=== PATIENT | male | born 1960 | race African-American/Black ===

== ENCOUNTER 2018-05-13 21:43 | Emergency (ER) | payer MEDICAID ==
[~2018-05-13] VITALS: Ht 177.8 cm; Wt 81.0 kg
[~2018-05-13 21:43] MED LIST: AMLO5TAB4 PO; AMYL1CAP57 PO; AZOPT LEFTEYE; COR12 PO; FOLI-43 PO; GEMF600T4 PO; KETO5DRO80 EACHEYE; LATA2.5D2 EACHEYE; LIPA1CAP8 PO; LISI-186 PO; LISI10TA5 PO; LOPE2CAP PO; LOPE2TAB26 PO; LORA10TA7 PO; METO25TA6 PO; MINE3.5O2 OP; MULT-1146 MT; MULT-1146 PO; OMEP10CA4 PO; PANT40TA4 PO; POLY15DR55 EACHEYE; PRAV40TA58 PO; TUSSL MT; VITAMIN B1 PO; [UNRECOGNIZED DRUG - CODE] TP
[2018-05-13 23:22] LABS: BASOPHILS % 0.9 % (0.0-2.0); EOSINOPHILS % 1.6 % (0.0-5.0); HEMATOCRIT. 32.1 % (42.0-52.0); HEMOGLOBIN. 10.6 g/dL (14.0-18.0); LYMPHOCYTES % 33.8 % (20.0-50.0); MEAN CORPUSCULAR HEMOGLOBIN 31.1 pg (28.0-32.0); MEAN CORPUSCULAR VOLUME 94.3 fL (80.0-94.0); MEAN PLATELET VOLUME 7.3 fl (7.4-10.4); MONOCYTES % 6.8 % (2.0-8.0); NEUTROPHILS % 56.9 % (40.0-76.0); PLATELET 181 x1000/uL (130-400); RED BLOOD CELL COUNT 3.41 mill/uL (4.7-6.1); RED CELL DISTRIBUTION WIDTH 18.1 % (11.6-14.6)
[2018-05-13 23:29] LABS: CHLORIDE 105 mEq/L (98-107)
[2018-05-13] MEDS ORDERED: KETOROLAC 15MG/ML VIAL IV ONE (23:30)
[2018-05-13 23:46] LABS: ETHANOL BLOOD 377 mg/dL
[2018-05-13] MEDS ORDERED: SODIUM CHLORIDE 0.9% 1,000 ML IV ONE (23:59)
[2018-05-14] MEDS ORDERED: FAMOTIDINE 20MG/2ML VIAL IV SCH (00:32)
[2018-05-14] MEDS ORDERED: MAGNESIUM/ALUMINUM HYDROXIDE/SIMETHICONE 30ML UDC PO SCH (00:32)
[2018-05-14 01:37] VITALS: BP 125/64
[2018-05-14 06:38] LABS: OPIATES URINE SCREEN NEGATIVE (NEGATIVE)
[2018-05-14 06:42] LABS: *AMPHETAMINES SCREEN URINE NEGATIVE (NEGATIVE); *BARBITURATES SCREEN URINE NEGATIVE (NEGATIVE); *BENZODIAZEPINES SCREEN URINE NEGATIVE (NEGATIVE); *COCAINE SCREEN URINE NEGATIVE (NEGATIVE); CANNABINOID URINE SCREEN NEGATIVE (NEGATIVE); METHADONE URINE SCREEN NEGATIVE (NEGATIVE); PHENCYCLIDINE URINE SCREEN NEGATIVE (NEGATIVE)
== END 2018-05-14 01:38 | disposition home or self-care (01) ==
LOC: ER 21:43
DX: F10.229 Alcohol dependence with intoxication, unspecified (principal); D64.9 Anemia, unspecified; R10.13 Epigastric pain; I10 Essential (primary) hypertension; E78.5 Hyperlipidemia, unspecified; E78.1 Pure hyperglyceridemia; I51.9 Heart disease, unspecified; K21.9 Gastro-esophageal reflux disease without esophagitis; R79.89 Other specified abnormal findings of blood chemistry; Z79.899 Other long term (current) drug therapy; Y90.8 Blood alcohol level of 240 mg/100 ml or more
CPT/HCPCS: 36415; 71045; 80053; 80305; 83880; 84484; 85025; 93005; 96374; 96375; 99285; G0482; J1885; J3490; J7030; Z7610

== ENCOUNTER 2018-05-14 02:33 | Emergency (ER) | payer MEDICAID ==
[~2018-05-14] VITALS: Ht 177.8 cm; Wt 72.0 kg
[2018-05-14] MEDS ORDERED: FAMOTIDINE 20MG/2ML VIAL IV STA (06:25)
[2018-05-14] MEDS ORDERED: SODIUM CHLORIDE 0.9% 1,000 ML IV ONE (06:25)
[2018-05-14 06:50] LABS: BASOPHILS % 0.5 % (0.0-2.0); EOSINOPHILS % 2.5 % (0.0-5.0); HEMATOCRIT. 34.1 % (42.0-52.0); LYMPHOCYTES % 38.2 % (20.0-50.0); MEAN CORPUSCULAR HEMOGLOBIN 30.5 pg (28.0-32.0); MEAN CORPUSCULAR VOLUME 94.5 fL (80.0-94.0); MEAN PLATELET VOLUME 7.2 fl (7.4-10.4); MONOCYTES % 8.2 % (2.0-8.0); NEUTROPHILS % 50.6 % (40.0-76.0); PLATELET 188 x1000/uL (130-400); RED BLOOD CELL COUNT 3.61 mill/uL (4.7-6.1); RED CELL DISTRIBUTION WIDTH 18.3 % (11.6-14.6)
[2018-05-14 06:58] LABS: INR 1.1; PROTHROMBIN TIME 10.6 sec (9.1-11.1)
[2018-05-14 07:13] LABS: CHLORIDE 108 mEq/L (98-107)
[2018-05-14 07:17] LABS: ETHANOL BLOOD 268 mg/dL
[2018-05-14 07:33] LABS: CLARITY URINE CLEAR (CLEAR); COLOR URINE YELLOW (YELLOW); KETONES URINE NEGATIVE (NEGATIVE); LEUKOCYTE ESTERASE URINE NEGATIVE (NEGATIVE); NITRITE URINE NEGATIVE (NEGATIVE); OCCULT BLOOD URINE NEGATIVE (NEGATIVE); PROTEIN URINE NEGATIVE (NEGATIVE); SPECIFIC GRAVITY URINE 1.003 (1.005-1.030); UROBILINOGEN URINE 0.2 E.U./dL (0.2-1.0)
[2018-05-14 08:04] LABS: *AMPHETAMINES SCREEN URINE NEGATIVE (NEGATIVE); *BARBITURATES SCREEN URINE NEGATIVE (NEGATIVE); *BENZODIAZEPINES SCREEN URINE NEGATIVE (NEGATIVE); *COCAINE SCREEN URINE NEGATIVE (NEGATIVE); METHADONE URINE SCREEN NEGATIVE (NEGATIVE)
[2018-05-14 08:05] LABS: CANNABINOID URINE SCREEN NEGATIVE (NEGATIVE); OPIATES URINE SCREEN NEGATIVE (NEGATIVE); PHENCYCLIDINE URINE SCREEN NEGATIVE (NEGATIVE)
[2018-05-14 08:26] VITALS: BP 110/67
== END 2018-05-14 08:27 | disposition home or self-care (01) ==
LOC: ER 02:33
DX: R10.13 Epigastric pain (principal); K21.9 Gastro-esophageal reflux disease without esophagitis; H40.9 Unspecified glaucoma; E78.00 Pure hypercholesterolemia, unspecified; I10 Essential (primary) hypertension; I95.9 Hypotension, unspecified; F10.129 Alcohol abuse with intoxication, unspecified; Y90.8 Blood alcohol level of 240 mg/100 ml or more; Z79.899 Other long term (current) drug therapy
CPT/HCPCS: 36415; 71045; 80053; 80305; 81003; 83690; 84484; 85025; 85610; 93005; 96374; 99285; G0482; J3490; J7030; Z7610

== ENCOUNTER 2018-06-22 19:02 | Emergency (ER) | payer MEDICAID ==
[~2018-06-22] VITALS: Ht 188 cm; Wt 79.0 kg
[2018-06-22 19:05] VITALS: BP 108/70
== END 2018-06-22 22:15 | disposition left against medical advice (07) ==
LOC: ER 19:35
DX: R19.7 Diarrhea, unspecified (principal); M54.5 Low back pain; Z53.21 Procedure and treatment not carried out due to patient leaving prior to being seen by health care provider

== ENCOUNTER 2018-07-11 23:19 | Inpatient (IN) | payer MEDICAID ==
[~2018-07-11] VITALS: Ht 190.5 cm; Wt 77.8 kg
[2018-07-12] VITALS (21 sets, daily range): BP systolic 100–122; BP diastolic 58–83
[2018-07-12] MEDS ORDERED: ASPIRIN 81MG TABLET PO ONE (01:15)
[2018-07-12] MEDS ORDERED: SODIUM CHLORIDE 0.9% 1,000 ML IV ONE (01:30)
[2018-07-12] MEDS ORDERED: NITROGLYCERIN 0.4MG TABLET SL SL PRN ×2 (01:30→07:45)
[2018-07-12 01:56] LABS: BASOPHILS % 0.4 % (0.0-2.0); HEMATOCRIT. 40.2 % (42.0-52.0); LYMPHOCYTES % 9.5 % (20.0-50.0); MEAN CORPUSCULAR HEMOGLOBIN 30.1 pg (28.0-32.0); MEAN CORPUSCULAR VOLUME 93.1 fL (80.0-94.0); MEAN PLATELET VOLUME 7.6 fl (7.4-10.4); MONOCYTES % 8.7 % (2.0-8.0); NEUTROPHILS % 81.4 % (40.0-76.0); PLATELET 239 x1000/uL (130-400); RED BLOOD CELL COUNT 4.31 mill/uL (4.7-6.1); RED CELL DISTRIBUTION WIDTH 16.6 % (11.6-14.6)
[2018-07-12 02:04] LABS: INR 1.1; PARTIAL THROMBOPLASTIN TIME 30.3 sec (23.4-31.0); PROTHROMBIN TIME 11.4 sec (9.1-11.1)
[2018-07-12 02:05] LABS: CHLORIDE 100 mEq/L (98-107)
[2018-07-12 02:24] LABS: CREATINE KINASE MB FRACTION 50.4 ng/mL (0.5-3.6)
[2018-07-12 02:32] LABS: CREATINE KINASE 4882 IU/L (39-308)
[2018-07-12 07:42] LABS: CLARITY URINE CLEAR (CLEAR); COLOR URINE YELLOW (YELLOW); KETONES URINE 4+ (NEGATIVE); LEUKOCYTE ESTERASE URINE NEGATIVE (NEGATIVE); NITRITE URINE NEGATIVE (NEGATIVE); OCCULT BLOOD URINE 1+ (NEGATIVE); PROTEIN URINE 1+ (NEGATIVE); SPECIFIC GRAVITY URINE 1.024 (1.005-1.030)
[2018-07-12] MEDS ORDERED: CLONIDINE 0.1MG TABLET PO PRN (07:45)
[2018-07-12] MEDS ORDERED: MAGNESIUM/ALUMINUM HYDROXIDE/SIMETHICONE 30ML UDC PO PRN (07:45)
[2018-07-12] MEDS ORDERED: DOCUSATE SODIUM 100MG CAPSULE PO PRN (07:45)
[2018-07-12] MEDS ORDERED: LORAZEPAM 0.5MG TABLET PO PRN (07:45)
[2018-07-12] MEDS ORDERED: KETOROLAC 15MG/ML VIAL IV PRN (07:45)
[2018-07-12] MEDS ORDERED: ZOLPIDEM TARTRATE 5MG TABLET PO PRN (07:45)
[2018-07-12] MEDS ORDERED: ONDANSETRON HCL 4MG/2ML INJ IV PRN ×2 (07:45→16:45)
[2018-07-12] MEDS ORDERED: ACETAMINOPHEN 325MG TABLET PO PRN ×2 (07:45→16:45)
[2018-07-12] MEDS ORDERED: IPRATROPIUM/ALBUTEROL 0.5-3(2.5)MG/3ML NEB INH PRN (07:45)
[2018-07-12 07:53] LABS: ETHANOL BLOOD < 10 mg/dL; LDL CHOLESTEROL 103 mg/dL (5-100)
[2018-07-12 08:08] LABS: HDL CHOLESTEROL 143 mg/dL (40-59)
[2018-07-12] MEDS ORDERED: ASPIRIN 325MG EC TABLET PO SCH (09:00)
[2018-07-12] MEDS ORDERED: NICARDIPINE 100MCG/ML 10ML VIAL (CATH LAB) IV ONE (14:23)
[2018-07-12] MEDS ORDERED: NITROGLYCERIN 50MCG/ML 10ML VIAL (CATH LAB) IV ONE (14:23)
[2018-07-12] MEDS ORDERED: HEPARIN SODIUM 1,000 UNIT/1ML VIAL IV ONE (14:42)
[2018-07-12] MEDS ORDERED: DEXT 5%/0.45% NACL 1000ML 1,000 ML IV SCH (15:15)
[2018-07-12] MEDS ORDERED: ASPIRIN 325MG TABLET PO ONE (15:15)
[2018-07-12] MEDS: SODIUM CHLORIDE 0.45% 1,000 ML IV SCH (15:19)
[2018-07-12] MEDS ORDERED: LIDOCAINE HCL 1% 20ML VIAL (Pyxis) INJ ONE (16:22)
[2018-07-12] MEDS ORDERED: IODIXANOL 320MG/ML 100 ML BOTTLE IV ONE (16:22)
[2018-07-12] MEDS ORDERED: FENTANYL CITRATE/PF 50MCG/ML 2ML VIAL ONE (16:29)
[2018-07-12] MEDS ORDERED: MIDAZOLAM HCL 2 MG/2 ML VIAL ONE (16:29)
[2018-07-12] MEDS ORDERED: ATROPINE SULFATE 1MG/10ML SYR IV PRN (16:45)
[2018-07-12] MEDS ORDERED: ENOXAPARIN 40MG/0.4ML SYR SUBCUT SCH (18:00)
[2018-07-12] MEDS ORDERED: SODIUM CHLORIDE 0.45% 1,000 ML IV ONE (18:00)
[2018-07-12] MEDS: MORPHINE SULFATE 4 MG/ML CPJ (NOT FOR IM USE) IV PRN ×2 (18:13→22:08)
[2018-07-12] MEDS: GUAIFENESIN 200MG/10ML SUGAR FREE UDC PO PRN ×2 (18:48→22:01)
[2018-07-12] MEDS ORDERED: MVI, ADULT NO.1 10 ML, FOLIC ACID 1 MG, THIAMINE HCL 100 MG in SODIUM CHLORIDE 0.9% 1,0... IV SCH ×4 (20:00)
[2018-07-12] MEDS ORDERED: INFLUENZA VIRUS VACCINE(AFLURIA) 0.5ML SYR IM ONE (20:30)
[2018-07-12] MEDS ORDERED: PNEUMOCOCCAL 23-VAL P-SAC VAC 0.5 ML IM ONE (20:30)
[2018-07-12] MEDS: SUCRALFATE 1 G/10 ML UDC PO SCH (20:42)
[2018-07-12] MEDS: FAMOTIDINE 20MG TABLET PO SCH (20:42)
[2018-07-12] MEDS ORDERED: NA PHOS,M-B/NA PHOS,DI-BA ENEMA 118ML PR PRN (21:00)
[2018-07-12 22:01] LABS: CREATINE KINASE MB FRACTION 21.2 ng/mL (0.5-3.6)
[2018-07-13] VITALS (12 sets, daily range): BP systolic 101–117; BP diastolic 54–76
[2018-07-13 00:04] LABS: *AMPHETAMINES SCREEN URINE PRESUMTIVE POSITIVE (NEGATIVE); *BARBITURATES SCREEN URINE NEGATIVE (NEGATIVE); *BENZODIAZEPINES SCREEN URINE PRESUMTIVE POSITIVE (NEGATIVE); *COCAINE SCREEN URINE PRESUMTIVE POSITIVE (NEGATIVE); CANNABINOID URINE SCREEN NEGATIVE (NEGATIVE); METHADONE URINE SCREEN NEGATIVE (NEGATIVE); OPIATES URINE SCREEN PRESUMTIVE POSITIVE (NEGATIVE); PHENCYCLIDINE URINE SCREEN NEGATIVE (NEGATIVE)
[2018-07-13 00:57] LABS: CREATINE KINASE MB FRACTION 17.9 ng/mL (0.5-3.6)
[2018-07-13] MEDS: SUCRALFATE 1 G/10 ML UDC PO SCH (07:03)
[2018-07-13] MEDS: SODIUM CHLORIDE 0.45% 1,000 ML IV SCH (07:15)
[2018-07-13 07:21] LABS: BASOPHILS % 0.4 % (0.0-2.0); EOSINOPHILS % 0.8 % (0.0-5.0); HEMATOCRIT. 34.4 % (42.0-52.0); HEMOGLOBIN. 11.3 g/dL (14.0-18.0); LYMPHOCYTES % 8.8 % (20.0-50.0); MEAN CORPUSCULAR VOLUME 91.3 fL (80.0-94.0); MEAN PLATELET VOLUME 8.2 fl (7.4-10.4); MONOCYTES % 8.1 % (2.0-8.0); NEUTROPHILS % 81.9 % (40.0-76.0); PLATELET 179 x1000/uL (130-400); RED BLOOD CELL COUNT 3.77 mill/uL (4.7-6.1); RED CELL DISTRIBUTION WIDTH 16.9 % (11.6-14.6)
[2018-07-13 07:46] LABS: CHLORIDE 108 mEq/L (98-107)
[2018-07-13] MEDS: FAMOTIDINE 20MG TABLET PO SCH (08:16)
[2018-07-13] MEDS ORDERED: INFLUENZA VIRUS VACCINE(AFLURIA) 0.5ML SYR IM ONE (09:00)
[2018-07-13] MEDS ORDERED: PNEUMOCOCCAL 23-VAL P-SAC VAC 0.5 ML IM ONE (09:00)
[2018-07-13] MEDS ORDERED: ASPIRIN 325MG TABLET PO SCH (09:00)
== END 2018-07-13 13:05 | disposition home or self-care (01) | DRG 190 ==
LOC: ER 23:19 → EDBEDREQ 07-12 03:21 → EDBEDREQTM 07-12 03:21 → CANRESERV 07-12 14:28 → ENRESERV 07-12 14:28 → EDBEDREQSVC 07-12 15:21 → 3WST 07-12 17:28
PROVIDERS: ADMIT Internal Medicine; ATTEND Internal Medicine
PROC: 4A023N7 Measurement of Cardiac Sampling and Pressure, Left Heart, Percutaneous Approach (ICD-10-PCS; principal; 2018-07-13)
PROC: B2111ZZ Fluoroscopy of Multiple Coronary Arteries using Low Osmolar Contrast (ICD-10-PCS; 2018-07-13)
PROC: B2151ZZ Fluoroscopy of Left Heart using Low Osmolar Contrast (ICD-10-PCS; 2018-07-13)
DX: I21.4 Non-ST elevation (NSTEMI) myocardial infarction (principal); E87.1 Hypo-osmolality and hyponatremia; M62.82 Rhabdomyolysis; K86.1 Other chronic pancreatitis; I10 Essential (primary) hypertension; F10.10 Alcohol abuse, uncomplicated; D72.829 Elevated white blood cell count, unspecified; H40.9 Unspecified glaucoma; Y90.0 Blood alcohol level of less than 20 mg/100 ml; R74.8 Abnormal levels of other serum enzymes; R94.31 Abnormal electrocardiogram [ECG] [EKG]; Z87.891 Personal history of nicotine dependence; Z79.899 Other long term (current) drug therapy; Z71.41 Alcohol abuse counseling and surveillance of alcoholic
CPT/HCPCS: 36415; 71045; 76700; 80048; 80061; 80305; 82550; 82553; 83036; 83735; 83880; 84484; 85379; 90686; 90732; 93005; 93306; 93458; 93970; 96360; 96361; 99285; C1769; C1887; C1893; G0482; J1644; J1650; J1885; J2250; J2270; J3010; J3411; J3490; J7030; Q9967

== ENCOUNTER 2018-08-12 12:53 | Emergency (ER) | payer MEDICAID ==
[~2018-08-12] VITALS: Ht 177.8 cm; Wt 90.0 kg
[~2018-08-12 12:53] MED LIST changes: -AMLO5TAB4 PO; -AMYL1CAP57 PO; -AZOPT LEFTEYE; -COR12 PO; -FOLI-43 PO; -GEMF600T4 PO; -KETO5DRO80 EACHEYE; -LATA2.5D2 EACHEYE; -LIPA1CAP8 PO; -LISI-186 PO; -LISI10TA5 PO; -LOPE2CAP PO; -LOPE2TAB26 PO; -LORA10TA7 PO; -METO25TA6 PO; -MINE3.5O2 OP; -MULT-1146 MT; -MULT-1146 PO; -OMEP10CA4 PO; -POLY15DR55 EACHEYE; -PRAV40TA58 PO; -TUSSL MT; -VITAMIN B1 PO; -[UNRECOGNIZED DRUG - CODE] TP
[2018-08-12] MEDS ORDERED: MORPHINE SULFATE 4 MG/ML CPJ (NOT FOR IM USE) IV STA (13:57)
[2018-08-12] MEDS ORDERED: SODIUM CHLORIDE 0.9% 1,000 ML IV ONE (13:57)
[2018-08-12] MEDS ORDERED: ONDANSETRON HCL 4MG/2ML INJ IV STA (13:57)
[2018-08-12 14:24] LABS: BASOPHILS % 0.4 % (0.0-2.0); EOSINOPHILS % 2.4 % (0.0-5.0); HEMATOCRIT. 34.4 % (42.0-52.0); HEMOGLOBIN. 11.3 g/dL (14.0-18.0); LYMPHOCYTES % 36.4 % (20.0-50.0); MEAN CORPUSCULAR HEMOGLOBIN 29.6 pg (28.0-32.0); MEAN CORPUSCULAR VOLUME 89.7 fL (80.0-94.0); MEAN PLATELET VOLUME 6.9 fl (7.4-10.4); MONOCYTES % 7.7 % (2.0-8.0); NEUTROPHILS % 53.1 % (40.0-76.0); PLATELET 338 x1000/uL (130-400); RED BLOOD CELL COUNT 3.83 mill/uL (4.7-6.1); RED CELL DISTRIBUTION WIDTH 16.3 % (11.6-14.6)
[2018-08-12 14:27] LABS: CHLORIDE 107 mEq/L (98-107)
[2018-08-12 14:49] LABS: CLARITY URINE CLEAR (CLEAR); COLOR URINE YELLOW (YELLOW); KETONES URINE NEGATIVE (NEGATIVE); LEUKOCYTE ESTERASE URINE NEGATIVE (NEGATIVE); NITRITE URINE NEGATIVE (NEGATIVE); OCCULT BLOOD URINE NEGATIVE (NEGATIVE); PROTEIN URINE NEGATIVE (NEGATIVE); SPECIFIC GRAVITY URINE 1.003 (1.005-1.030); UROBILINOGEN URINE 0.2 E.U./dL (0.2-1.0)
[2018-08-12 16:10] VITALS: BP 121/73
== END 2018-08-12 16:23 | disposition home or self-care (01) ==
LOC: ER 12:53
DX: R07.89 Other chest pain (principal); R10.84 Generalized abdominal pain; R11.2 Nausea with vomiting, unspecified; R19.7 Diarrhea, unspecified; I10 Essential (primary) hypertension; E11.9 Type 2 diabetes mellitus without complications; Z87.828 Personal history of other (healed) physical injury and trauma; Z85.9 Personal history of malignant neoplasm, unspecified
CPT/HCPCS: 36415; 70450; 71111; 74176; 80053; 81003; 83690; 83880; 84484; 85025; 93005; 96361; 96374; 96375; 99284; J2270; J2405; J7030

== ENCOUNTER 2018-08-25 09:12 | Inpatient (IN) | payer MEDICAID ==
[~2018-08-25] VITALS: Ht 190.5 cm; Wt 73.9 kg
[2018-08-25] MEDS ORDERED: ONDANSETRON HCL 4MG/2ML INJ IV STA (10:21)
[2018-08-25] MEDS ORDERED: KETOROLAC 30MG/ML VIAL IV STA (10:21)
[2018-08-25 10:35] LABS: BASOPHILS % 0.9 % (0.0-2.0); EOSINOPHILS % 1.5 % (0.0-5.0); HEMATOCRIT. 28.6 % (42.0-52.0); HEMOGLOBIN. 9.4 g/dL (14.0-18.0); LYMPHOCYTES % 23.2 % (20.0-50.0); MEAN CORPUSCULAR HEMOGLOBIN 29.7 pg (28.0-32.0); MEAN CORPUSCULAR VOLUME 90.5 fL (80.0-94.0); MEAN PLATELET VOLUME 7.5 fl (7.4-10.4); MONOCYTES % 11.5 % (2.0-8.0); NEUTROPHILS % 62.9 % (40.0-76.0); PLATELET 227 x1000/uL (130-400); RED BLOOD CELL COUNT 3.16 mill/uL (4.7-6.1); RED CELL DISTRIBUTION WIDTH 16.6 % (11.6-14.6)
[2018-08-25 10:37] LABS: CHLORIDE 109 mEq/L (98-107)
[2018-08-25 10:42] LABS: PROTHROMBIN TIME 10.1 sec (9.1-11.1)
[2018-08-25 10:48] LABS: CLARITY URINE CLEAR (CLEAR); COLOR URINE YELLOW (YELLOW); KETONES URINE NEGATIVE (NEGATIVE); LEUKOCYTE ESTERASE URINE NEGATIVE (NEGATIVE); NITRITE URINE NEGATIVE (NEGATIVE); OCCULT BLOOD URINE NEGATIVE (NEGATIVE); PH URINE 6.5 (4.5-8.0); PROTEIN URINE TRACE (NEGATIVE)
[2018-08-25 10:51] LABS: ETHANOL BLOOD 362 mg/dL
[2018-08-25 11:29] LABS: *AMPHETAMINES SCREEN URINE NEGATIVE (NEGATIVE); *BARBITURATES SCREEN URINE NEGATIVE (NEGATIVE)
[2018-08-25 11:30] LABS: *BENZODIAZEPINES SCREEN URINE NEGATIVE (NEGATIVE); *COCAINE SCREEN URINE NEGATIVE (NEGATIVE); CANNABINOID URINE SCREEN NEGATIVE (NEGATIVE); METHADONE URINE SCREEN NEGATIVE (NEGATIVE); OPIATES URINE SCREEN NEGATIVE (NEGATIVE); PHENCYCLIDINE URINE SCREEN NEGATIVE (NEGATIVE)
[2018-08-25] MEDS ORDERED: IOHEXOL-300 100 ML BOTTLE ONE (12:09)
[2018-08-25] MEDS ORDERED: MORPHINE SULFATE 10 MG/ML CPJ IV ONE (14:00)
[2018-08-25] MEDS ORDERED: AMLO5TAB88 MT (17:15)
[2018-08-25] MEDS ORDERED: ONDANSETRON HCL 4MG/2ML INJ IV PRN (17:45)
[2018-08-25 17:50] VITALS: BP 110/53
[2018-08-25 18:54] LABS: HEMATOCRIT. 28.6 % (42.0-52.0); HEMOGLOBIN. 9.3 g/dL (14.0-18.0); MEAN CORPUSCULAR HEMOGLOBIN 29.1 pg (28.0-32.0); MEAN CORPUSCULAR VOLUME 89.9 fL (80.0-94.0); MEAN PLATELET VOLUME 7.2 fl (7.4-10.4); PLATELET 217 x1000/uL (130-400); RED BLOOD CELL COUNT 3.18 mill/uL (4.7-6.1); RED CELL DISTRIBUTION WIDTH 16.5 % (11.6-14.6)
[2018-08-25 19:02] LABS: CHLORIDE 109 mEq/L (98-107)
[2018-08-25 19:06] LABS: AMYLASE 44 IU/L (25-115)
[2018-08-25 19:17] LABS: PLATELET ESTIMATE NORMAL
[2018-08-25 20:00] VITALS: BP 126/68
[2018-08-25] MEDS: MORPHINE SULFATE 10MG/5ML ORAL SOLN UDC PO PRN (20:22)
[2018-08-25] MEDS ORDERED: POTASSIUM CHLORIDE 20MEQ TABLET SR PO NR (22:30)
[2018-08-26] VITALS: BP 114/56
[2018-08-26] MEDS ORDERED: POTASSIUM CHLORIDE 20MEQ TABLET SR PO SCH (01:00)
[2018-08-26 04:00] VITALS: BP 138/75
[2018-08-26] MEDS: MORPHINE SULFATE 10MG/5ML ORAL SOLN UDC PO PRN ×4 (04:55→20:13)
[2018-08-26] MEDS: OMEPRAZOLE 20MG CAPSULE EXTENDED RELEASE PO SCH (06:12)
[2018-08-26 08:53] VITALS: BP 132/68
[2018-08-26] MEDS: MULTIVITAMINS,THER W-MINERALS TABLET PO SCH (08:55)
[2018-08-26] MEDS: THIAMINE HCL 100MG TABLET PO SCH (08:55)
[2018-08-26] MEDS: FOLIC ACID 1MG TABLET PO SCH (08:55)
[2018-08-26 13:43] VITALS: BP 124/69
[2018-08-26 16:15] VITALS: BP 124/72
[2018-08-26 20:00] VITALS: BP 120/74
[2018-08-27] VITALS: BP 140/80
[2018-08-27] MEDS: MORPHINE SULFATE 10MG/5ML ORAL SOLN UDC PO PRN ×2 (03:00→08:15)
[2018-08-27 04:00] VITALS: BP 136/75
[2018-08-27] MEDS: OMEPRAZOLE 20MG CAPSULE EXTENDED RELEASE PO SCH (06:23)
[2018-08-27 08:00] VITALS: BP 130/79
[2018-08-27] MEDS: THIAMINE HCL 100MG TABLET PO SCH (08:15)
[2018-08-27] MEDS: FOLIC ACID 1MG TABLET PO SCH (08:15)
[2018-08-27] MEDS: MULTIVITAMINS,THER W-MINERALS TABLET PO SCH (08:15)
[2018-08-27 12:00] VITALS: BP 110/75
[2018-08-27 12:17] VITALS: BP 110/75
== END 2018-08-27 15:40 | disposition home or self-care (01) | DRG 241 ==
LOC: ER 09:12 → 6EST 14:04 → ENRESERV 15:41
PROVIDERS: ADMIT Internal Medicine; ATTEND Internal Medicine
DX: K29.70 Gastritis, unspecified, without bleeding (principal); C64.1 Malignant neoplasm of right kidney, except renal pelvis; E87.8 Other disorders of electrolyte and fluid balance, not elsewhere classified; K86.1 Other chronic pancreatitis; E11.9 Type 2 diabetes mellitus without complications; D64.9 Anemia, unspecified; F10.20 Alcohol dependence, uncomplicated; M25.551 Pain in right hip; Y90.8 Blood alcohol level of 240 mg/100 ml or more; I10 Essential (primary) hypertension; F17.200 Nicotine dependence, unspecified, uncomplicated; W18.30XA Fall on same level, unspecified, initial encounter; Y93.89 Activity, other specified; Y92.89 Other specified places as the place of occurrence of the external cause; Y99.8 Other external cause status; Z85.528 Personal history of other malignant neoplasm of kidney; Z69.81 Encounter for mental health services for victim of other abuse
CPT/HCPCS: 36415; 71045; 73502; 74177; 80048; 80305; 82150; 82962; 83036; 84484; 93005; 96374; 96375; 97162; 99285; G0482; J1885; J2270; J2405; Q9967

== ENCOUNTER 2018-08-28 10:11 | Emergency (ER) | payer MEDICAID ==
[~2018-08-28] VITALS: Ht 180.3 cm; Wt 90.0 kg
[~2018-08-28 10:11] MED LIST changes: +AMLO5TAB88 MT
[2018-08-28] MEDS ORDERED: ONDANSETRON 4MG/5ML UDC PO ONE (11:00)
[2018-08-28] MEDS ORDERED: IBUPROFEN 600MG TABLET PO ONE (11:00)
[2018-08-28 11:47] LABS: HEMATOCRIT. 30.2 % (42.0-52.0); HEMOGLOBIN. 9.7 g/dL (14.0-18.0); MEAN CORPUSCULAR HEMOGLOBIN 28.9 pg (28.0-32.0); MEAN CORPUSCULAR VOLUME 89.7 fL (80.0-94.0); MEAN PLATELET VOLUME 7.3 fl (7.4-10.4); PLATELET 270 x1000/uL (130-400); RED BLOOD CELL COUNT 3.37 mill/uL (4.7-6.1); RED CELL DISTRIBUTION WIDTH 16.3 % (11.6-14.6)
[2018-08-28 11:57] LABS: CHLORIDE 100 mEq/L (98-107)
[2018-08-28 12:05] VITALS: BP 132/85
[2018-08-28 12:35] LABS: ETHANOL BLOOD 335 mg/dL
[2018-08-28 12:43] LABS: PLATELET ESTIMATE NORMAL
== END 2018-08-28 12:05 | disposition home or self-care (01) ==
LOC: ER 10:14
DX: R10.30 Lower abdominal pain, unspecified (principal); F10.229 Alcohol dependence with intoxication, unspecified; E11.9 Type 2 diabetes mellitus without complications; I12.9 Hypertensive chronic kidney disease with stage 1 through stage 4 chronic kidney disease, or unspecified chronic kidney disease; N18.9 Chronic kidney disease, unspecified; Y90.8 Blood alcohol level of 240 mg/100 ml or more
CPT/HCPCS: 36415; 80053; 83690; 85025; 99283; G0482

== ENCOUNTER 2018-11-12 13:25 | Emergency (ER) | payer MEDICAID ==
[~2018-11-12] VITALS: Ht 182.9 cm; Wt 91.0 kg
[2018-11-12] MEDS ORDERED: KETOROLAC 30MG/ML VIAL IV STA (13:52)
[2018-11-12] MEDS ORDERED: MAGNESIUM/ALUMINUM HYDROXIDE/SIMETHICONE 30ML UDC PO STA (13:52)
[2018-11-12] MEDS ORDERED: SODIUM CHLORIDE 0.9% 1,000 ML IV ONE (13:52)
[2018-11-12 14:16] LABS: BASOPHILS % 1.5 % (0.0-2.0); EOSINOPHILS % 1.7 % (0.0-5.0); HEMATOCRIT. 31.1 % (42.0-52.0); HEMOGLOBIN. 10.1 g/dL (14.0-18.0); LYMPHOCYTES % 45.2 % (20.0-50.0); MEAN CORPUSCULAR HEMOGLOBIN 26.3 pg (28.0-32.0); MEAN CORPUSCULAR VOLUME 81.4 fL (80.0-94.0); MEAN PLATELET VOLUME 6.3 fl (7.4-10.4); MONOCYTES % 10.5 % (2.0-8.0); NEUTROPHILS % 41.1 % (40.0-76.0); PLATELET 402 x1000/uL (130-400); RED BLOOD CELL COUNT 3.83 mill/uL (4.7-6.1); RED CELL DISTRIBUTION WIDTH 18.3 % (11.6-14.6)
[2018-11-12 14:20] LABS: CHLORIDE 106 mEq/L (98-107)
[2018-11-12 14:23] LABS: PROTHROMBIN TIME 10.5 sec (9.1-11.1)
[2018-11-12 15:24] LABS: ETHANOL BLOOD 370 mg/dL
[2018-11-12] MEDS ORDERED: MORPHINE SULFATE 4 MG/ML CPJ (NOT FOR IM USE) IV ONE (15:30)
[2018-11-12 15:40] VITALS: BP 102/62
== END 2018-11-12 16:19 | disposition home or self-care (01) ==
LOC: ER 13:25
DX: R10.13 Epigastric pain (principal); E11.9 Type 2 diabetes mellitus without complications; I10 Essential (primary) hypertension; N28.9 Disorder of kidney and ureter, unspecified; F10.20 Alcohol dependence, uncomplicated; Z79.899 Other long term (current) drug therapy; Y90.8 Blood alcohol level of 240 mg/100 ml or more
CPT/HCPCS: 36415; 71045; 80053; 80320; 83690; 85025; 85610; 93005; 96374; 96375; 99284; J1885; J2270; J7030; G0480

== ENCOUNTER 2018-11-12 19:06 | Emergency (ER) | payer MEDICAID ==
[~2018-11-12] VITALS: Ht 188 cm; Wt 89.0 kg
[2018-11-12] MEDS ORDERED: VISCOUS LIDOCAINE 2% 15 ML UDC PO STA (23:23)
[2018-11-12] MEDS ORDERED: MAGNESIUM/ALUMINUM HYDROXIDE/SIMETHICONE 30ML UDC PO STA (23:23)
[2018-11-13] MEDS ORDERED: MORPHINE SULFATE 10 MG/ML CPJ IM SCH (00:53)
[2018-11-13] MEDS ORDERED: MORPHINE SULFATE 10 MG/ML CPJ IM ONE (01:00)
[2018-11-13 01:11] VITALS: BP 114/78
== END 2018-11-13 02:58 | disposition home or self-care (01) ==
LOC: ER 19:06
DX: R10.13 Epigastric pain (principal); E11.22 Type 2 diabetes mellitus with diabetic chronic kidney disease; I12.9 Hypertensive chronic kidney disease with stage 1 through stage 4 chronic kidney disease, or unspecified chronic kidney disease; N18.9 Chronic kidney disease, unspecified
CPT/HCPCS: 96372; 99283; J2270; Z7610

== ENCOUNTER 2018-11-17 17:00 | Emergency (ER) | payer MEDICAID ==
[~2018-11-17] VITALS: Ht 193 cm; Wt 82.0 kg
[2018-11-17 17:22] VITALS: BP 116/78
== END 2018-11-18 01:28 | disposition left against medical advice (07) ==
LOC: ER 17:00
DX: Z53.21 Procedure and treatment not carried out due to patient leaving prior to being seen by health care provider (principal)
CPT/HCPCS: 93005

== ENCOUNTER 2018-11-22 21:27 | Emergency (ER) | payer MEDICAID ==
[~2018-11-22] VITALS: Ht 188 cm; Wt 86.0 kg
[2018-11-22 22:55] VITALS: BP 120/77
== END 2018-11-22 23:00 | disposition left against medical advice (07) ==
LOC: ER 21:27
DX: Z53.21 Procedure and treatment not carried out due to patient leaving prior to being seen by health care provider (principal)

== ENCOUNTER 2018-11-23 08:19 | Emergency (ER) | payer MEDICAID ==
[~2018-11-23] VITALS: Ht 185.4 cm; Wt 83.0 kg
[2018-11-23 09:36] LABS: BASOPHILS % 0.3 % (0.0-2.0); EOSINOPHILS % 1.2 % (0.0-5.0); HEMATOCRIT. 34.3 % (42.0-52.0); HEMOGLOBIN. 10.4 g/dL (14.0-18.0); LYMPHOCYTES % 41.1 % (20.0-50.0); MEAN CORPUSCULAR VOLUME 88.9 fL (80.0-94.0); MEAN PLATELET VOLUME 7.1 fl (7.4-10.4); MONOCYTES % 6.4 % (2.0-8.0); PLATELET 202 x1000/uL (130-400); RED BLOOD CELL COUNT 3.85 mill/uL (4.7-6.1); RED CELL DISTRIBUTION WIDTH 20.1 % (11.6-14.6)
[2018-11-23 09:40] LABS: CHLORIDE 110 mEq/L (98-107)
[2018-11-23 09:46] LABS: ETHANOL BLOOD 266 mg/dL
[2018-11-23 10:12] LABS: CLARITY URINE CLEAR (CLEAR); COLOR URINE YELLOW (YELLOW); KETONES URINE NEGATIVE (NEGATIVE); LEUKOCYTE ESTERASE URINE NEGATIVE (NEGATIVE); NITRITE URINE NEGATIVE (NEGATIVE); OCCULT BLOOD URINE 1+ (NEGATIVE); PROTEIN URINE 2+ (NEGATIVE); SPECIFIC GRAVITY URINE 1.016 (1.005-1.030); UROBILINOGEN URINE 0.2 E.U./dL (0.2-1.0)
[2018-11-23 10:27] LABS: *AMPHETAMINES SCREEN URINE NEGATIVE (NEGATIVE); *BARBITURATES SCREEN URINE NEGATIVE (NEGATIVE); *BENZODIAZEPINES SCREEN URINE PRESUMTIVE POSITIVE (NEGATIVE); *COCAINE SCREEN URINE NEGATIVE (NEGATIVE); METHADONE URINE SCREEN NEGATIVE (NEGATIVE); OPIATES URINE SCREEN PRESUMTIVE POSITIVE (NEGATIVE)
[2018-11-23 10:28] LABS: CANNABINOID URINE SCREEN NEGATIVE (NEGATIVE); PHENCYCLIDINE URINE SCREEN NEGATIVE (NEGATIVE)
[2018-11-23] MEDS ORDERED: SODIUM CHLORIDE 0.9% 1,000 ML IV ONE (10:42)
[2018-11-23] MEDS ORDERED: NALOXONE HCL 0.4 MG/ML 1ML VIAL IV ONE (12:00)
[2018-11-23] MEDS ORDERED: KETOROLAC 30MG/ML VIAL IV ONE (12:45)
[2018-11-23 17:20] VITALS: BP 113/74
== END 2018-11-23 17:30 | disposition home or self-care (01) ==
LOC: ER 08:19 → CANBEDREQ 20:17
DX: F10.229 Alcohol dependence with intoxication, unspecified (principal); I11.9 Hypertensive heart disease without heart failure; F17.200 Nicotine dependence, unspecified, uncomplicated; Z86.73 Personal history of transient ischemic attack (TIA), and cerebral infarction without residual deficits; Z79.899 Other long term (current) drug therapy; Y90.8 Blood alcohol level of 240 mg/100 ml or more
CPT/HCPCS: 36415; 70450; 71045; 80053; 80305; 80320; 81003; 82962; 85025; 93005; 96374; 99284; J1885; J7030; Z7610; A4315; G0480

== ENCOUNTER 2018-12-19 18:46 | Inpatient (IN) | payer MEDICAID ==
[~2018-12-19] VITALS: Ht 182.9 cm; Wt 74.8 kg
[2018-12-20] MEDS ORDERED: SODIUM CHLORIDE 0.9% 1,000 ML IV ONE (00:05)
[2018-12-20] MEDS ORDERED: FAMOTIDINE 20MG/2ML VIAL IV STA (00:05)
[2018-12-20] MEDS ORDERED: ONDANSETRON HCL 4MG/2ML INJ IV STA (00:05)
[2018-12-20] MEDS ORDERED: MORPHINE SULFATE 4 MG/ML CPJ (NOT FOR IM USE) IV STA (00:05)
[2018-12-20 00:23] LABS: BASOPHILS % 0.8 % (0.0-2.0); EOSINOPHILS % 1.5 % (0.0-5.0); HEMATOCRIT. 30.4 % (42.0-52.0); HEMOGLOBIN. 9.8 g/dL (14.0-18.0); MEAN CORPUSCULAR HEMOGLOBIN 27.5 pg (28.0-32.0); MEAN CORPUSCULAR VOLUME 85.1 fL (80.0-94.0); MEAN PLATELET VOLUME 6.5 fl (7.4-10.4); MONOCYTES % 8.7 % (2.0-8.0); PLATELET 242 x1000/uL (130-400); RED BLOOD CELL COUNT 3.57 mill/uL (4.7-6.1); RED CELL DISTRIBUTION WIDTH 22.3 % (11.6-14.6)
[2018-12-20 00:29] LABS: CHLORIDE 109 mEq/L (98-107)
[2018-12-20 00:33] LABS: ETHANOL BLOOD 281 mg/dL
[2018-12-20 00:37] LABS: PLATELET ESTIMATE NORMAL
[2018-12-20 02:50] LABS: *AMPHETAMINES SCREEN URINE NEGATIVE (NEGATIVE); *BARBITURATES SCREEN URINE NEGATIVE (NEGATIVE); *BENZODIAZEPINES SCREEN URINE NEGATIVE (NEGATIVE); *COCAINE SCREEN URINE NEGATIVE (NEGATIVE); METHADONE URINE SCREEN NEGATIVE (NEGATIVE); OPIATES URINE SCREEN PRESUMTIVE POSITIVE (NEGATIVE)
[2018-12-20 02:51] LABS: CANNABINOID URINE SCREEN NEGATIVE (NEGATIVE); PHENCYCLIDINE URINE SCREEN NEGATIVE (NEGATIVE)
[2018-12-20] MEDS ORDERED: ONDANSETRON HCL 4MG/2ML INJ IV PRN (05:15)
[2018-12-20] MEDS ORDERED: MORPHINE SULFATE 4 MG/ML CPJ (NOT FOR IM USE) IV PRN (05:15)
[2018-12-20 05:37] VITALS: BP 122/69
[2018-12-20 08:00] VITALS: BP 108/68
[2018-12-20] MEDS ORDERED: FOLIC ACID 1 MG, THIAMINE HCL 100 MG, MVI, ADULT NO.1 10 ML in DEXTROSE 5% WATER 1,000 ML IV SCH ×4 (09:00)
[2018-12-20] MEDS ORDERED: MULTIVITAMINS,THER W-MINERALS TABLET PO SCH (09:00)
[2018-12-20] MEDS ORDERED: PANTOPRAZOLE SODIUM 40 MG/VIAL IV SCH (09:00)
[2018-12-20 09:46] LABS: BASOPHILS % 1.3 % (0.0-2.0); EOSINOPHILS % 1.9 % (0.0-5.0); HEMATOCRIT. 30.1 % (42.0-52.0); HEMOGLOBIN. 9.6 g/dL (14.0-18.0); LYMPHOCYTES % 45.8 % (20.0-50.0); MEAN CORPUSCULAR HEMOGLOBIN 27.1 pg (28.0-32.0); MEAN CORPUSCULAR VOLUME 85.4 fL (80.0-94.0); MEAN PLATELET VOLUME 6.9 fl (7.4-10.4); MONOCYTES % 12.5 % (2.0-8.0); NEUTROPHILS % 38.5 % (40.0-76.0); PLATELET 227 x1000/uL (130-400); RED BLOOD CELL COUNT 3.53 mill/uL (4.7-6.1); RED CELL DISTRIBUTION WIDTH 21.9 % (11.6-14.6)
[2018-12-20 09:56] LABS: CHLORIDE 110 mEq/L (98-107)
[2018-12-20 10:01] LABS: AMYLASE 51 IU/L (25-115)
[2018-12-20 12:00] VITALS: BP 131/81
[2018-12-20 13:46] VITALS: BP 131/81
[2018-12-20] MEDS ORDERED: DEXTROSE 5% WATER 1,000 ML IV SCH (18:00)
== END 2018-12-20 15:23 | disposition home or self-care (01) | DRG 241 ==
LOC: ER 18:46 → 6EST 12-20 02:58 → EDBEDREQ 12-20 03:04 → EDBEDREQTM 12-20 03:04 → EDBEDREQSVC 12-20 03:04 → ENRESERV 12-20 03:43
PROVIDERS: ADMIT Internal Medicine; ATTEND Internal Medicine
DX: K29.20 Alcoholic gastritis without bleeding (principal); E87.8 Other disorders of electrolyte and fluid balance, not elsewhere classified; I11.9 Hypertensive heart disease without heart failure; D64.9 Anemia, unspecified; F10.20 Alcohol dependence, uncomplicated; Z86.73 Personal history of transient ischemic attack (TIA), and cerebral infarction without residual deficits
CPT/HCPCS: 36415; 80305; 80320; 82150; 96374; 96375; 99285; A6261; C9113; J2270; J2405; J3411; J3490; J7030; J7070; G0480

== ENCOUNTER 2018-12-20 21:39 | Emergency (ER) | payer MEDICAID ==
[~2018-12-20] VITALS: Ht 185.4 cm; Wt 86.0 kg
[2018-12-21] MEDS ORDERED: KETOROLAC 30MG/ML VIAL IV STA (03:01)
[2018-12-21 03:29] LABS: HEMATOCRIT. 29.9 % (42.0-52.0); HEMOGLOBIN. 9.7 g/dL (14.0-18.0); MEAN CORPUSCULAR HEMOGLOBIN 27.4 pg (28.0-32.0); MEAN CORPUSCULAR VOLUME 84.8 fL (80.0-94.0); MEAN PLATELET VOLUME 6.9 fl (7.4-10.4); PLATELET 247 x1000/uL (130-400); RED BLOOD CELL COUNT 3.52 mill/uL (4.7-6.1)
[2018-12-21 03:35] LABS: CHLORIDE 111 mEq/L (98-107)
[2018-12-21 03:50] LABS: ETHANOL BLOOD 339 mg/dL
[2018-12-21 03:52] LABS: CLARITY URINE CLEAR (CLEAR); COLOR URINE YELLOW (YELLOW); KETONES URINE NEGATIVE (NEGATIVE); LEUKOCYTE ESTERASE URINE NEGATIVE (NEGATIVE); NITRITE URINE NEGATIVE (NEGATIVE); OCCULT BLOOD URINE NEGATIVE (NEGATIVE); PH URINE 6.5 (4.5-8.0); PROTEIN URINE NEGATIVE (NEGATIVE); SPECIFIC GRAVITY URINE 1.007 (1.005-1.030); UROBILINOGEN URINE 0.2 E.U./dL (0.2-1.0)
[2018-12-21 04:26] LABS: *AMPHETAMINES SCREEN URINE NEGATIVE (NEGATIVE); *BARBITURATES SCREEN URINE NEGATIVE (NEGATIVE); *BENZODIAZEPINES SCREEN URINE NEGATIVE (NEGATIVE); *COCAINE SCREEN URINE NEGATIVE (NEGATIVE); CANNABINOID URINE SCREEN NEGATIVE (NEGATIVE); METHADONE URINE SCREEN NEGATIVE (NEGATIVE); OPIATES URINE SCREEN NEGATIVE (NEGATIVE); PHENCYCLIDINE URINE SCREEN NEGATIVE (NEGATIVE)
[2018-12-21 04:52] LABS: ATYPICAL LYMPHOCYTES 1; PLATELET ESTIMATE NORMAL
[2018-12-21] MEDS ORDERED: SODIUM CHLORIDE 0.9% 1,000 ML IV ONE (07:30)
[2018-12-21 10:40] VITALS: BP 130/64
== END 2018-12-21 11:07 | disposition home or self-care (01) ==
LOC: ER 21:39
DX: F10.229 Alcohol dependence with intoxication, unspecified (principal); Y90.8 Blood alcohol level of 240 mg/100 ml or more; K86.1 Other chronic pancreatitis; I10 Essential (primary) hypertension; Z86.73 Personal history of transient ischemic attack (TIA), and cerebral infarction without residual deficits
CPT/HCPCS: 36415; 74176; 80053; 80305; 80320; 81003; 85025; 93005; 96361; 96374; 99284; J1885; J7030; Z7610; G0480

== ENCOUNTER 2018-12-25 16:58 | Emergency (ER) | payer MEDICAID ==
[~2018-12-25] VITALS: Ht 188 cm; Wt 100.0 kg
[2018-12-25] MEDS ORDERED: MORPHINE SULFATE 4 MG/ML CPJ (NOT FOR IM USE) IV STA (17:24)
[2018-12-25] MEDS ORDERED: SODIUM CHLORIDE 0.9% 1,000 ML IV ONE ×2 (17:24→21:30)
[2018-12-25] MEDS ORDERED: ONDANSETRON HCL 4MG/2ML INJ IV STA (17:24)
[2018-12-25 18:09] LABS: BASOPHILS % 1.2 % (0.0-2.0); EOSINOPHILS % 0.9 % (0.0-5.0); HEMATOCRIT. 37.4 % (42.0-52.0); LYMPHOCYTES % 52.7 % (20.0-50.0); MEAN CORPUSCULAR HEMOGLOBIN 27.1 pg (28.0-32.0); MEAN CORPUSCULAR VOLUME 84.3 fL (80.0-94.0); MEAN PLATELET VOLUME 7.2 fl (7.4-10.4); MONOCYTES % 4.7 % (2.0-8.0); NEUTROPHILS % 40.5 % (40.0-76.0); PLATELET 257 x1000/uL (130-400); RED BLOOD CELL COUNT 4.43 mill/uL (4.7-6.1)
[2018-12-25 18:15] LABS: CHLORIDE 111 mEq/L (98-107)
[2018-12-25 18:30] LABS: ETHANOL BLOOD 497 mg/dL
[2018-12-25 18:34] LABS: INR 1.1; PROTHROMBIN TIME 11.7 sec (9.6-11.0)
[2018-12-25 18:35] LABS: PLATELET ESTIMATE NORMAL
[2018-12-25 19:40] LABS: CLARITY URINE CLEAR (CLEAR); COLOR URINE YELLOW (YELLOW); KETONES URINE NEGATIVE (NEGATIVE); LEUKOCYTE ESTERASE URINE NEGATIVE (NEGATIVE); NITRITE URINE NEGATIVE (NEGATIVE); OCCULT BLOOD URINE NEGATIVE (NEGATIVE); PROTEIN URINE NEGATIVE (NEGATIVE); SPECIFIC GRAVITY URINE 1.015 (1.005-1.030); UROBILINOGEN URINE 0.2 E.U./dL (0.2-1.0)
[2018-12-25 19:54] LABS: *AMPHETAMINES SCREEN URINE NEGATIVE (NEGATIVE); *BARBITURATES SCREEN URINE NEGATIVE (NEGATIVE); *COCAINE SCREEN URINE NEGATIVE (NEGATIVE)
[2018-12-25 19:56] LABS: *BENZODIAZEPINES SCREEN URINE NEGATIVE (NEGATIVE); CANNABINOID URINE SCREEN NEGATIVE (NEGATIVE); METHADONE URINE SCREEN NEGATIVE (NEGATIVE); OPIATES URINE SCREEN PRESUMTIVE POSITIVE (NEGATIVE); PHENCYCLIDINE URINE SCREEN NEGATIVE (NEGATIVE)
[2018-12-26 05:08] VITALS: BP 107/72
== END 2018-12-26 05:16 | disposition home or self-care (01) ==
LOC: ER 16:58
DX: F10.129 Alcohol abuse with intoxication, unspecified (principal); R07.9 Chest pain, unspecified; E11.9 Type 2 diabetes mellitus without complications; I10 Essential (primary) hypertension; F17.200 Nicotine dependence, unspecified, uncomplicated; Z88.8 Allergy status to other drugs, medicaments and biological substances; Y90.9 Presence of alcohol in blood, level not specified
CPT/HCPCS: 36415; 71045; 80053; 80305; 80320; 81003; 83690; 84484; 85025; 85610; 93005; 96374; 96375; 99284; J2270; J2405; J7030; G0480

== ENCOUNTER 2019-01-04 16:48 | Emergency (ER) | payer MEDICAID ==
[~2019-01-04] VITALS: Ht 185.4 cm; Wt 87.0 kg
[2019-01-04 16:54] VITALS: BP 122/71
== END 2019-01-04 18:42 | disposition left against medical advice (07) ==
LOC: ER 16:48
DX: R05 Cough (principal); Z53.21 Procedure and treatment not carried out due to patient leaving prior to being seen by health care provider

== ENCOUNTER 2019-01-06 13:40 | Emergency (ER) | payer MEDICAID ==
[~2019-01-06] VITALS: Ht 185.4 cm; Wt 80.0 kg
[2019-01-06] MEDS ORDERED: SODIUM CHLORIDE 0.9% 1,000 ML IV ONE (15:43)
[2019-01-06 16:07] LABS: CLARITY URINE CLEAR (CLEAR); COLOR URINE YELLOW (YELLOW); KETONES URINE 1+ (NEGATIVE); LEUKOCYTE ESTERASE URINE NEGATIVE (NEGATIVE); NITRITE URINE NEGATIVE (NEGATIVE); OCCULT BLOOD URINE NEGATIVE (NEGATIVE); PROTEIN URINE 2+ (NEGATIVE); SPECIFIC GRAVITY URINE 1.024 (1.005-1.030); UROBILINOGEN URINE 0.2 E.U./dL (0.2-1.0)
[2019-01-06 16:23] LABS: BASOPHILS % 0.6 % (0.0-2.0); EOSINOPHILS % 0.6 % (0.0-5.0); HEMATOCRIT. 33.6 % (42.0-52.0); HEMOGLOBIN. 10.9 g/dL (14.0-18.0); LYMPHOCYTES % 48.5 % (20.0-50.0); MEAN CORPUSCULAR HEMOGLOBIN 27.7 pg (28.0-32.0); MEAN CORPUSCULAR VOLUME 85.4 fL (80.0-94.0); MEAN PLATELET VOLUME 7.4 fl (7.4-10.4); MONOCYTES % 6.1 % (2.0-8.0); NEUTROPHILS % 44.2 % (40.0-76.0); PLATELET 124 x1000/uL (130-400); RED BLOOD CELL COUNT 3.93 mill/uL (4.7-6.1)
[2019-01-06 16:24] LABS: *BENZODIAZEPINES SCREEN URINE PRESUMTIVE POSITIVE (NEGATIVE); *COCAINE SCREEN URINE NEGATIVE (NEGATIVE); METHADONE URINE SCREEN NEGATIVE (NEGATIVE); OPIATES URINE SCREEN NEGATIVE (NEGATIVE); PHENCYCLIDINE URINE SCREEN NEGATIVE (NEGATIVE)
[2019-01-06 16:25] LABS: *AMPHETAMINES SCREEN URINE NEGATIVE (NEGATIVE); *BARBITURATES SCREEN URINE NEGATIVE (NEGATIVE); CANNABINOID URINE SCREEN NEGATIVE (NEGATIVE)
[2019-01-06 16:26] LABS: CHLORIDE 107 mEq/L (98-107)
[2019-01-06 16:29] LABS: PROTHROMBIN TIME 10.7 sec (9.6-11.0)
[2019-01-06 16:35] LABS: PLATELET ESTIMATE DECREASED
[2019-01-06 16:55] LABS: ETHANOL BLOOD 352 mg/dL
[2019-01-06] MEDS ORDERED: SODIUM CHLORIDE 0.9% 1000ML BAG (SEPSIS BOLUS) IV ONE (17:00)
[2019-01-06] MEDS ORDERED: TETANUS, DIPHTHERIA, PERTUSSIS VAC/PF 0.5ML (>7YR OLD) IM ONE (17:30)
[2019-01-06] MEDS ORDERED: LIDOCAINE HCL/PF 1% 10 MG/ML 5ML VIAL IJ ONE (17:30)
[2019-01-06] MEDS ORDERED: SODIUM CHLORIDE 0.9% 1,400 ML IV SCH (17:30)
[2019-01-06] MEDS ORDERED: IOHEXOL-300 100 ML BOTTLE ONE (18:20)
[2019-01-06] MEDS ORDERED: PIPERACILLIN/TAZ 3.375G PREMIX 50 ML IV ONE (19:15)
[2019-01-07 07:34] VITALS: BP 132/92
== END 2019-01-07 11:21 | disposition home or self-care (01) ==
LOC: ER 13:40
DX: R19.7 Diarrhea, unspecified (principal); F10.129 Alcohol abuse with intoxication, unspecified; E86.0 Dehydration; D61.818 Other pancytopenia; K80.70 Calculus of gallbladder and bile duct without cholecystitis without obstruction; K57.90 Diverticulosis of intestine, part unspecified, without perforation or abscess without bleeding; K86.1 Other chronic pancreatitis; I51.7 Cardiomegaly; K76.0 Fatty (change of) liver, not elsewhere classified; N28.1 Cyst of kidney, acquired; K83.8 Other specified diseases of biliary tract; E11.9 Type 2 diabetes mellitus without complications; E78.00 Pure hypercholesterolemia, unspecified; I10 Essential (primary) hypertension; Z87.891 Personal history of nicotine dependence; Z79.899 Other long term (current) drug therapy; Y90.8 Blood alcohol level of 240 mg/100 ml or more
CPT/HCPCS: 36415; 74177; 80053; 80305; 80320; 81003; 83605; 83690; 85025; 85610; 87040; 87086; 96360; 96361; 99284; J7030; Q9967; J2543; G0480

== ENCOUNTER 2019-01-10 07:49 | Emergency (ER) | payer MEDICAID ==
[~2019-01-10] VITALS: Ht 182.9 cm; Wt 80.0 kg
[2019-01-10 08:54] LABS: BASOPHILS % 0.9 % (0.0-2.0); EOSINOPHILS % 1.5 % (0.0-5.0); HEMATOCRIT. 30.9 % (42.0-52.0); HEMOGLOBIN. 9.7 g/dL (14.0-18.0); LYMPHOCYTES % 45.2 % (20.0-50.0); MEAN CORPUSCULAR HEMOGLOBIN 27.5 pg (28.0-32.0); MEAN CORPUSCULAR VOLUME 87.1 fL (80.0-94.0); MEAN PLATELET VOLUME 7.5 fl (7.4-10.4); MONOCYTES % 8.6 % (2.0-8.0); NEUTROPHILS % 43.8 % (40.0-76.0); PLATELET 140 x1000/uL (130-400); RED BLOOD CELL COUNT 3.54 mill/uL (4.7-6.1); RED CELL DISTRIBUTION WIDTH 24.8 % (11.6-14.6)
[2019-01-10 08:57] LABS: CHLORIDE 113 mEq/L (98-107)
[2019-01-10 09:26] LABS: ETHANOL BLOOD 468 mg/dL
[2019-01-10 10:12] LABS: PLATELET ESTIMATE NORMAL
[2019-01-10 11:04] LABS: CLARITY URINE CLEAR (CLEAR); COLOR URINE YELLOW (YELLOW); KETONES URINE NEGATIVE (NEGATIVE); LEUKOCYTE ESTERASE URINE NEGATIVE (NEGATIVE); NITRITE URINE NEGATIVE (NEGATIVE); OCCULT BLOOD URINE NEGATIVE (NEGATIVE); PH URINE 6.5 (4.5-8.0); PROTEIN URINE 1+ (NEGATIVE); SPECIFIC GRAVITY URINE 1.012 (1.005-1.030); UROBILINOGEN URINE 0.2 E.U./dL (0.2-1.0)
[2019-01-10 11:21] LABS: *AMPHETAMINES SCREEN URINE NEGATIVE (NEGATIVE); *BARBITURATES SCREEN URINE NEGATIVE (NEGATIVE); *BENZODIAZEPINES SCREEN URINE NEGATIVE (NEGATIVE); *COCAINE SCREEN URINE NEGATIVE (NEGATIVE); METHADONE URINE SCREEN NEGATIVE (NEGATIVE); OPIATES URINE SCREEN NEGATIVE (NEGATIVE)
[2019-01-10 11:22] LABS: CANNABINOID URINE SCREEN NEGATIVE (NEGATIVE); PHENCYCLIDINE URINE SCREEN NEGATIVE (NEGATIVE)
[2019-01-10 15:30] VITALS: BP 111/60
== END 2019-01-10 16:00 | disposition home or self-care (01) ==
LOC: ER 07:49
DX: F10.229 Alcohol dependence with intoxication, unspecified (principal); Y90.8 Blood alcohol level of 240 mg/100 ml or more; K70.30 Alcoholic cirrhosis of liver without ascites; R03.0 Elevated blood-pressure reading, without diagnosis of hypertension
CPT/HCPCS: 36415; 80053; 80305; 80307; 80320; 80329; 81003; 85025; 99283; Z7610; G0480

== ENCOUNTER 2019-02-06 13:49 | Emergency (ER) | payer MEDICAID ==
[~2019-02-06] VITALS: Ht 185.4 cm; Wt 85.0 kg
[2019-02-06] MEDS ORDERED: MAGNESIUM/ALUMINUM HYDROXIDE/SIMETHICONE 30ML UDC PO STA (14:42)
[2019-02-06] MEDS ORDERED: FAMOTIDINE 20MG/2ML VIAL IV STA (14:42)
[2019-02-06] MEDS ORDERED: SODIUM CHLORIDE 0.9% 1,000 ML IV ONE (14:42)
[2019-02-06] MEDS ORDERED: ACETAMINOPHEN 325MG TABLET PO STA (14:42)
[2019-02-06 15:37] LABS: BASOPHILS % 1.2 % (0.0-2.0); EOSINOPHILS % 0.8 % (0.0-5.0); HEMATOCRIT. 33.6 % (42.0-52.0); HEMOGLOBIN. 10.8 g/dL (14.0-18.0); LYMPHOCYTES % 44.6 % (20.0-50.0); MEAN CORPUSCULAR HEMOGLOBIN 28.8 pg (28.0-32.0); MEAN CORPUSCULAR VOLUME 89.8 fL (80.0-94.0); MONOCYTES % 14.2 % (2.0-8.0); NEUTROPHILS % 39.2 % (40.0-76.0); PLATELET 249 x1000/uL (130-400); RED BLOOD CELL COUNT 3.74 mill/uL (4.7-6.1); RED CELL DISTRIBUTION WIDTH 25.8 % (11.6-14.6)
[2019-02-06 15:40] LABS: CHLORIDE 106 mEq/L (98-107); PROTHROMBIN TIME 10.8 sec (9.6-11.0)
[2019-02-06 15:57] LABS: ETHANOL BLOOD 418 mg/dL
[2019-02-06] MEDS ORDERED: POTASSIUM CHLORIDE 20MEQ TABLET SR PO ONE (16:00)
[2019-02-06 16:11] LABS: PLATELET ESTIMATE NORMAL
[2019-02-06] MEDS ORDERED: SODIUM CHLORIDE 0.9% 1000ML BAG (SEPSIS BOLUS) IV ONE (16:15)
[2019-02-06 16:44] LABS: CLARITY URINE CLEAR (CLEAR); COLOR URINE YELLOW (YELLOW); KETONES URINE NEGATIVE (NEGATIVE); LEUKOCYTE ESTERASE URINE NEGATIVE (NEGATIVE); NITRITE URINE NEGATIVE (NEGATIVE); OCCULT BLOOD URINE 1+ (NEGATIVE); PROTEIN URINE TRACE (NEGATIVE); SPECIFIC GRAVITY URINE 1.011 (1.005-1.030)
[2019-02-06 17:31] LABS: OPIATES URINE SCREEN NEGATIVE (NEGATIVE); PHENCYCLIDINE URINE SCREEN NEGATIVE (NEGATIVE)
[2019-02-06 17:32] LABS: *AMPHETAMINES SCREEN URINE NEGATIVE (NEGATIVE); *BARBITURATES SCREEN URINE NEGATIVE (NEGATIVE); *BENZODIAZEPINES SCREEN URINE NEGATIVE (NEGATIVE); *COCAINE SCREEN URINE NEGATIVE (NEGATIVE); CANNABINOID URINE SCREEN NEGATIVE (NEGATIVE); METHADONE URINE SCREEN NEGATIVE (NEGATIVE)
[2019-02-06 21:42] VITALS: BP 110/72
== END 2019-02-06 21:43 | disposition home or self-care (01) ==
LOC: ER 13:57
DX: F10.20 Alcohol dependence, uncomplicated (principal); Y90.8 Blood alcohol level of 240 mg/100 ml or more; E87.2 Acidosis; D64.9 Anemia, unspecified; E11.9 Type 2 diabetes mellitus without complications; I10 Essential (primary) hypertension; Z86.73 Personal history of transient ischemic attack (TIA), and cerebral infarction without residual deficits; Z87.891 Personal history of nicotine dependence
CPT/HCPCS: 36415; 71045; 80053; 80305; 80320; 81003; 83605; 83690; 84484; 85025; 85610; 93005; 96360; 96361; 99284; J3490; J7030; G0480

== ENCOUNTER 2019-04-05 11:15 | Emergency (ER) | payer MEDICAID ==
[~2019-04-05] VITALS: Ht 182.9 cm; Wt 80.0 kg
[2019-04-05] MEDS ORDERED: FOLIC ACID 1 MG, THIAMINE HCL 100 MG, MVI, ADULT NO.1 10 ML in DEXTROSE 5% WATER 1,000 ML IV ONE ×4 (12:00)
[2019-04-05 12:26] LABS: CHLORIDE 112 mEq/L (98-107)
[2019-04-05 12:35] LABS: *AMPHETAMINES SCREEN URINE NEGATIVE (NEGATIVE); *BARBITURATES SCREEN URINE NEGATIVE (NEGATIVE); *BENZODIAZEPINES SCREEN URINE NEGATIVE (NEGATIVE); *COCAINE SCREEN URINE NEGATIVE (NEGATIVE); METHADONE URINE SCREEN NEGATIVE (NEGATIVE); OPIATES URINE SCREEN NEGATIVE (NEGATIVE)
[2019-04-05 12:37] LABS: CANNABINOID URINE SCREEN NEGATIVE (NEGATIVE); PHENCYCLIDINE URINE SCREEN NEGATIVE (NEGATIVE)
[2019-04-05 12:44] LABS: ETHANOL BLOOD 421 mg/dL
[2019-04-05 13:16] LABS: HEMATOCRIT. 30.9 % (42.0-52.0); HEMOGLOBIN. 10.1 g/dL (14.0-18.0); MEAN CORPUSCULAR HEMOGLOBIN 30.8 pg (28.0-32.0); MEAN CORPUSCULAR VOLUME 93.9 fL (80.0-94.0); PLATELET 135 x1000/uL (130-400); RED BLOOD CELL COUNT 3.29 mill/uL (4.7-6.1); RED CELL DISTRIBUTION WIDTH 24.4 % (11.6-14.6)
[2019-04-05 13:30] VITALS: BP 114/74
[2019-04-05 13:50] LABS: PLATELET ESTIMATE NORMAL
== END 2019-04-05 14:00 | disposition home or self-care (01) ==
LOC: ER 11:15
DX: F10.229 Alcohol dependence with intoxication, unspecified (principal); G89.29 Other chronic pain; R10.13 Epigastric pain; R07.9 Chest pain, unspecified; M54.5 Low back pain; R55 Syncope and collapse; D61.818 Other pancytopenia; E11.9 Type 2 diabetes mellitus without complications; I10 Essential (primary) hypertension; K21.9 Gastro-esophageal reflux disease without esophagitis; Z79.899 Other long term (current) drug therapy; Y90.8 Blood alcohol level of 240 mg/100 ml or more
CPT/HCPCS: 36415; 80053; 80305; 80320; 83690; 83880; 84484; 85025; 93005; 96365; 99284; J3411; J3490; J7070; G0480

== ENCOUNTER 2021-06-15 11:06 | Emergency (ER) | payer MEDICAID ==
[~2021-06-15] VITALS: Ht 188 cm; Wt 91.0 kg
[~2021-06-15 11:06] MED LIST changes: -PANT40TA4 PO; +PANT40TA51 PO
[2021-06-15 12:48] LABS: HEMATOCRIT. 35.6 % (42.0-52.0); HEMOGLOBIN. 11.4 g/dL (14.0-18.0); MEAN CORPUSCULAR HEMOGLOBIN 33.6 pg (28.0-32.0); MEAN CORPUSCULAR VOLUME 104.7 fL (80.0-94.0); MEAN PLATELET VOLUME 7.3 fl (7.4-10.4); PLATELET 304 x1000/uL (130-400); RED CELL DISTRIBUTION WIDTH 15.7 % (11.6-14.6)
[2021-06-15 13:00] LABS: CHLORIDE 106 mEq/L (98-107)
[2021-06-15 13:09] LABS: PLATELET ESTIMATE NORMAL
[2021-06-15 13:22] LABS: ETHANOL BLOOD 329 mg/dL
[2021-06-15 19:30] VITALS: BP 138/71
[2021-06-15] MEDS ORDERED: ACETAMINOPHEN 325MG TABLET PO ONE (20:00)
[2021-06-15] MEDS ORDERED: MAGNESIUM/ALUMINUM HYDROXIDE/SIMETHICONE 30ML UDC PO ONE (20:00)
== END 2021-06-15 21:00 | disposition left against medical advice (07) ==
LOC: ER 11:06
DX: F10.229 Alcohol dependence with intoxication, unspecified (principal); R07.89 Other chest pain; I10 Essential (primary) hypertension; E11.9 Type 2 diabetes mellitus without complications; Y90.8 Blood alcohol level of 240 mg/100 ml or more
CPT/HCPCS: 36415; 71045; 80053; 80320; 83880; 84484; 85025; 93005; 99285; G0480

== ENCOUNTER 2021-06-15 21:54 | Emergency (ER) | payer MEDICAID ==
[~2021-06-15] VITALS: Ht 182.9 cm; Wt 74.9 kg
[2021-06-15 21:56] VITALS: BP 100/70
[2021-06-16 00:04] LABS: BASOPHILS % 0.9 % (0.0-2.0); CHLORIDE 109 mEq/L (98-107); EOSINOPHILS % 0.8 % (0.0-5.0); HEMOGLOBIN. 11.6 g/dL (14.0-18.0); LYMPHOCYTES % 22.3 % (20.0-50.0); MEAN CORPUSCULAR VOLUME 99.9 fL (80.0-94.0); MONOCYTES % 12.3 % (2.0-8.0); NEUTROPHILS % 63.7 % (40.0-76.0); PLATELET 329 x1000/uL (130-400); RED CELL DISTRIBUTION WIDTH 15.2 % (11.6-14.6)
[2021-06-16 00:14] LABS: ETHANOL BLOOD 298 mg/dL
== END 2021-06-16 02:02 | disposition left against medical advice (07) ==
LOC: ER 21:54
DX: R07.89 Other chest pain (principal); Z53.21 Procedure and treatment not carried out due to patient leaving prior to being seen by health care provider
CPT/HCPCS: 36415; 80053; 80320; 84484; 85025; 93005; G0480

== ENCOUNTER 2021-06-22 14:50 | Emergency (ER) | payer MEDICAID ==
[~2021-06-22] VITALS: Ht 190.5 cm; Wt 83.0 kg
[2021-06-22 14:50] VITALS: BP 129/90
== END 2021-06-22 20:01 | disposition left against medical advice (07) ==
LOC: ER 14:50
DX: Z53.21 Procedure and treatment not carried out due to patient leaving prior to being seen by health care provider (principal); F41.9 Anxiety disorder, unspecified; F32.9 Major depressive disorder, single episode, unspecified; E78.00 Pure hypercholesterolemia, unspecified; K76.9 Liver disease, unspecified; Z86.19 Personal history of other infectious and parasitic diseases

== ENCOUNTER 2021-07-02 10:31 | Emergency (ER) | payer MEDICAID ==
[~2021-07-02] VITALS: Ht 182.9 cm; Wt 85.0 kg
[2021-07-02 12:01] LABS: BASOPHILS % 0.5 % (0.0-2.0); HEMATOCRIT. 36.9 % (42.0-52.0); HEMOGLOBIN. 12.3 g/dL (14.0-18.0); MEAN CORPUSCULAR HEMOGLOBIN 32.9 pg (28.0-32.0); MEAN CORPUSCULAR VOLUME 98.7 fL (80.0-94.0); MEAN PLATELET VOLUME 6.9 fl (7.4-10.4); MONOCYTES % 6.4 % (2.0-8.0); NEUTROPHILS % 49.1 % (40.0-76.0); PLATELET 276 x1000/uL (130-400); RED BLOOD CELL COUNT 3.74 mill/uL (4.7-6.1); RED CELL DISTRIBUTION WIDTH 15.4 % (11.6-14.6)
[2021-07-02 12:18] LABS: CHLORIDE 112 mEq/L (98-107)
[2021-07-02 12:52] LABS: ETHANOL BLOOD 475 mg/dL
[2021-07-02 14:35] VITALS: BP 121/72
== END 2021-07-02 15:45 | disposition left against medical advice (07) ==
LOC: ER 10:40 → CANBEDREQ 16:23
DX: R10.9 Unspecified abdominal pain (principal); F41.9 Anxiety disorder, unspecified; F32.9 Major depressive disorder, single episode, unspecified; E78.00 Pure hypercholesterolemia, unspecified; I10 Essential (primary) hypertension
CPT/HCPCS: 36415; 80048; 80076; 80320; 84484; 85025; 93005; 99284; G0480

== ENCOUNTER 2021-07-09 11:16 | Emergency (ER) | payer MEDICAID ==
[~2021-07-09] VITALS: Ht 182.9 cm; Wt 75.0 kg
[2021-07-09 11:19] VITALS: BP 99/66
[2021-07-09] MEDS ORDERED: MORPHINE SULFATE 4 MG/ML CPJ (NOT FOR IM USE) IV ONE (12:15)
[2021-07-09] MEDS ORDERED: ONDANSETRON HCL 4MG/2ML INJ IV ONE (12:15)
[2021-07-09] MEDS ORDERED: SODIUM CHLORIDE 0.9% 1,000 ML IV ONE (12:15)
== END 2021-07-09 12:41 | disposition left against medical advice (07) ==
LOC: ER 11:16
DX: R10.9 Unspecified abdominal pain (principal); F17.200 Nicotine dependence, unspecified, uncomplicated; F12.10 Cannabis abuse, uncomplicated; E78.00 Pure hypercholesterolemia, unspecified; Z13.9 Encounter for screening, unspecified; Z98.890 Other specified postprocedural states
CPT/HCPCS: 93005; 99283; J7030

== ENCOUNTER 2021-07-31 14:28 | Emergency (ER) | payer MEDICAID ==
[~2021-07-31] VITALS: Ht 177.8 cm; Wt 87.0 kg
[2021-07-31 14:33] VITALS: BP 142/68
[2021-07-31] MEDS ORDERED: KETOROLAC 60MG/2ML VIAL IM STA (15:29)
[2021-07-31 16:04] LABS: EOSINOPHILS % 0.5 % (0.0-5.0); HEMATOCRIT. 38.4 % (42.0-52.0); HEMOGLOBIN. 12.7 g/dL (14.0-18.0); LYMPHOCYTES % 24.3 % (20.0-50.0); MEAN CORPUSCULAR HEMOGLOBIN 31.5 pg (28.0-32.0); MEAN CORPUSCULAR VOLUME 95.6 fL (80.0-94.0); MEAN PLATELET VOLUME 6.9 fl (7.4-10.4); MONOCYTES % 3.5 % (2.0-8.0); NEUTROPHILS % 70.7 % (40.0-76.0); PLATELET 337 x1000/uL (130-400); RED BLOOD CELL COUNT 4.02 mill/uL (4.7-6.1); RED CELL DISTRIBUTION WIDTH 14.6 % (11.6-14.6)
[2021-07-31 16:14] LABS: CHLORIDE 109 mEq/L (98-107)
[2021-07-31 16:17] LABS: CLARITY URINE CLEAR (CLEAR); COLOR URINE YELLOW (YELLOW); KETONES URINE NEGATIVE (NEGATIVE); LEUKOCYTE ESTERASE URINE NEGATIVE (NEGATIVE); NITRITE URINE NEGATIVE (NEGATIVE); OCCULT BLOOD URINE 1+ (NEGATIVE); PROTEIN URINE NEGATIVE (NEGATIVE); SPECIFIC GRAVITY URINE 1.006 (1.005-1.030); UROBILINOGEN URINE 0.2 E.U./dL (0.2-1.0)
== END 2021-07-31 17:17 | disposition home or self-care (01) ==
LOC: ER 14:34
DX: N28.89 Other specified disorders of kidney and ureter (principal); R31.9 Hematuria, unspecified; G89.29 Other chronic pain; R10.31 Right lower quadrant pain; I10 Essential (primary) hypertension
CPT/HCPCS: 36415; 80053; 81003; 84484; 85025; 93005; 99284

== ENCOUNTER 2021-08-26 08:24 | Emergency (ER) | payer MEDICAID ==
[~2021-08-26] VITALS: Ht 185.4 cm; Wt 68.5 kg
[2021-08-26 08:32] VITALS: BP 130/84
[2021-08-26 09:20] LABS: CLARITY URINE CLEAR (CLEAR); COLOR URINE YELLOW (YELLOW); KETONES URINE NEGATIVE (NEGATIVE); LEUKOCYTE ESTERASE URINE NEGATIVE (NEGATIVE); NITRITE URINE NEGATIVE (NEGATIVE); OCCULT BLOOD URINE TRACE (NEGATIVE); PROTEIN URINE NEGATIVE (NEGATIVE); SPECIFIC GRAVITY URINE 1.014 (1.005-1.030); UROBILINOGEN URINE 0.2 E.U./dL (0.2-1.0)
[2021-08-26 09:39] LABS: *BARBITURATES SCREEN URINE NEGATIVE (NEGATIVE)
[2021-08-26 09:40] LABS: *AMPHETAMINES SCREEN URINE NEGATIVE (NEGATIVE); *BENZODIAZEPINES SCREEN URINE NEGATIVE (NEGATIVE); *COCAINE SCREEN URINE NEGATIVE (NEGATIVE); METHADONE URINE SCREEN NEGATIVE (NEGATIVE); OPIATES URINE SCREEN NEGATIVE (NEGATIVE); PHENCYCLIDINE URINE SCREEN NEGATIVE (NEGATIVE)
[2021-08-26 09:41] LABS: CANNABINOID URINE SCREEN NEGATIVE (NEGATIVE)
== END 2021-08-26 11:52 | disposition left against medical advice (07) ==
LOC: ER 08:24
DX: F10.229 Alcohol dependence with intoxication, unspecified (principal); I10 Essential (primary) hypertension; K21.9 Gastro-esophageal reflux disease without esophagitis; F12.10 Cannabis abuse, uncomplicated; Y90.9 Presence of alcohol in blood, level not specified; Z86.73 Personal history of transient ischemic attack (TIA), and cerebral infarction without residual deficits; Z86.19 Personal history of other infectious and parasitic diseases
CPT/HCPCS: 80305; 81003; 99283

== ENCOUNTER 2021-08-26 10:21 | Emergency (ER) | payer MEDICAID ==
[~2021-08-26] VITALS: Ht 185.4 cm; Wt 87.0 kg
[2021-08-26 11:22] VITALS: BP 118/78
[2021-08-26] MEDS ORDERED: ACETAMINOPHEN 325MG TABLET PO ONE (12:15)
[2021-08-26 14:32] LABS: CLARITY URINE CLEAR (CLEAR); COLOR URINE YELLOW (YELLOW); KETONES URINE NEGATIVE (NEGATIVE); LEUKOCYTE ESTERASE URINE NEGATIVE (NEGATIVE); NITRITE URINE NEGATIVE (NEGATIVE); OCCULT BLOOD URINE TRACE (NEGATIVE); PH URINE 5.5 (4.5-8.0); PROTEIN URINE TRACE (NEGATIVE); SPECIFIC GRAVITY URINE 1.012 (1.005-1.030); UROBILINOGEN URINE 0.2 E.U./dL (0.2-1.0)
[2021-08-26 14:59] LABS: *AMPHETAMINES SCREEN URINE NEGATIVE (NEGATIVE); *BARBITURATES SCREEN URINE NEGATIVE (NEGATIVE); *BENZODIAZEPINES SCREEN URINE NEGATIVE (NEGATIVE)
[2021-08-26 15:00] LABS: *COCAINE SCREEN URINE NEGATIVE (NEGATIVE); CANNABINOID URINE SCREEN NEGATIVE (NEGATIVE); METHADONE URINE SCREEN NEGATIVE (NEGATIVE); OPIATES URINE SCREEN NEGATIVE (NEGATIVE); PHENCYCLIDINE URINE SCREEN NEGATIVE (NEGATIVE)
== END 2021-08-26 15:10 | disposition home or self-care (01) ==
LOC: ER 10:55
DX: F10.229 Alcohol dependence with intoxication, unspecified (principal); K21.9 Gastro-esophageal reflux disease without esophagitis; I10 Essential (primary) hypertension; F12.10 Cannabis abuse, uncomplicated; Y90.9 Presence of alcohol in blood, level not specified; Z68.25 Body mass index [BMI] 25.0-25.9, adult; Z86.73 Personal history of transient ischemic attack (TIA), and cerebral infarction without residual deficits
CPT/HCPCS: 80305; 81003; 99283

== ENCOUNTER 2021-09-01 09:45 | Emergency (ER) | payer MEDICAID ==
[~2021-09-01] VITALS: Ht 188 cm; Wt 85.0 kg
[2021-09-01 10:13] VITALS: BP 116/70
[2021-09-01] MEDS ORDERED: HALOPERIDOL LACTATE 5MG/ML VIAL IM ONE ×2 (12:45→13:15)
[2021-09-01] MEDS ORDERED: LORAZEPAM 2MG/ML CPJ IM ONE ×2 (12:45→13:15)
[2021-09-01 12:59] LABS: BASOPHILS % 0.5 % (0.0-2.0); EOSINOPHILS % 2.1 % (0.0-5.0); HEMATOCRIT. 35.7 % (42.0-52.0); HEMOGLOBIN. 11.6 g/dL (14.0-18.0); LYMPHOCYTES % 34.9 % (20.0-50.0); MEAN CORPUSCULAR HEMOGLOBIN 31.8 pg (28.0-32.0); MEAN CORPUSCULAR VOLUME 97.6 fL (80.0-94.0); MEAN PLATELET VOLUME 7.5 fl (7.4-10.4); MONOCYTES % 8.6 % (2.0-8.0); NEUTROPHILS % 53.9 % (40.0-76.0); PLATELET 275 x1000/uL (130-400); RED BLOOD CELL COUNT 3.65 mill/uL (4.7-6.1); RED CELL DISTRIBUTION WIDTH 14.3 % (11.6-14.6)
[2021-09-01 13:13] LABS: CHLORIDE 111 mEq/L (98-107)
[2021-09-01 13:42] LABS: ETHANOL BLOOD 481 mg/dL
[2021-09-01] MEDS ORDERED: IBUP-2028 PO (21:47)
== END 2021-09-01 19:35 | disposition home or self-care (01) ==
LOC: ER 09:45
DX: F10.229 Alcohol dependence with intoxication, unspecified (principal); Y90.8 Blood alcohol level of 240 mg/100 ml or more; J45.909 Unspecified asthma, uncomplicated; E11.9 Type 2 diabetes mellitus without complications; K21.9 Gastro-esophageal reflux disease without esophagitis; I10 Essential (primary) hypertension; Z86.73 Personal history of transient ischemic attack (TIA), and cerebral infarction without residual deficits
CPT/HCPCS: 36415; 80048; 80320; 85025; 96372; 99284; J1630; J2060; G0480

== ENCOUNTER 2021-09-01 21:22 | Emergency (ER) | payer MEDICAID ==
[~2021-09-01] VITALS: Ht 182.9 cm; Wt 79.0 kg
[2021-09-01 21:46] VITALS: BP 122/68
[2021-09-01] MEDS ORDERED: IBUP-2028 PO (21:47)
[2021-09-01] MEDS ORDERED: IBUPROFEN 400MG TABLET PO ONE (22:00)
== END 2021-09-01 22:00 | disposition home or self-care (01) ==
LOC: ER 21:22
DX: M54.9 Dorsalgia, unspecified (principal); F10.229 Alcohol dependence with intoxication, unspecified; Y90.0 Blood alcohol level of less than 20 mg/100 ml; J45.909 Unspecified asthma, uncomplicated; E11.9 Type 2 diabetes mellitus without complications; K21.9 Gastro-esophageal reflux disease without esophagitis; I10 Essential (primary) hypertension; Z86.73 Personal history of transient ischemic attack (TIA), and cerebral infarction without residual deficits; F12.10 Cannabis abuse, uncomplicated
CPT/HCPCS: 99281

== ENCOUNTER 2021-09-01 22:51 | Emergency (ER) | payer MEDICAID ==
[~2021-09-01] VITALS: Ht 190.5 cm; Wt 70.0 kg
[~2021-09-01 22:51] MED LIST changes: +IBUP-2028 PO
[2021-09-01 22:55] VITALS: BP 124/88
== END 2021-09-01 23:46 | disposition home or self-care (01) ==
LOC: ER 22:51
DX: F10.229 Alcohol dependence with intoxication, unspecified (principal); Y90.0 Blood alcohol level of less than 20 mg/100 ml; R45.1 Restlessness and agitation; F12.10 Cannabis abuse, uncomplicated; J45.909 Unspecified asthma, uncomplicated; E11.9 Type 2 diabetes mellitus without complications; K21.9 Gastro-esophageal reflux disease without esophagitis; I10 Essential (primary) hypertension; Z86.73 Personal history of transient ischemic attack (TIA), and cerebral infarction without residual deficits
CPT/HCPCS: 99281

== ENCOUNTER 2021-09-03 10:42 | Emergency (ER) | payer MEDICAID ==
[~2021-09-03] VITALS: Ht 185.4 cm; Wt 80.0 kg
[2021-09-03] MEDS ORDERED: IBUPROFEN 600MG TABLET PO STA (11:59)
[2021-09-03 12:55] LABS: BASOPHILS % 0.8 % (0.0-2.0); EOSINOPHILS % 1.1 % (0.0-5.0); HEMATOCRIT. 37.4 % (42.0-52.0); HEMOGLOBIN. 12.4 g/dL (14.0-18.0); LYMPHOCYTES % 33.4 % (20.0-50.0); MEAN CORPUSCULAR HEMOGLOBIN 31.8 pg (28.0-32.0); MEAN CORPUSCULAR VOLUME 96.1 fL (80.0-94.0); MEAN PLATELET VOLUME 7.4 fl (7.4-10.4); MONOCYTES % 6.2 % (2.0-8.0); NEUTROPHILS % 58.5 % (40.0-76.0); PLATELET 282 x1000/uL (130-400); RED BLOOD CELL COUNT 3.89 mill/uL (4.7-6.1); RED CELL DISTRIBUTION WIDTH 14.3 % (11.6-14.6)
[2021-09-03 12:58] LABS: CHLORIDE 110 mEq/L (98-107)
[2021-09-03 13:12] LABS: ETHANOL BLOOD 467 mg/dL
[2021-09-03] MEDS ORDERED: ACETAMINOPHEN 325MG TABLET PO STA (14:18)
[2021-09-03] MEDS ORDERED: NAPR-681 PO (15:22)
[2021-09-03 15:38] VITALS: BP 115/85
[2021-09-03] MEDS ORDERED: L25 MT (19:33)
== END 2021-09-03 15:41 | disposition home or self-care (01) ==
LOC: ER 10:42
DX: M54.9 Dorsalgia, unspecified (principal); F12.10 Cannabis abuse, uncomplicated; I10 Essential (primary) hypertension; E11.9 Type 2 diabetes mellitus without complications
CPT/HCPCS: 36415; 72100; 80048; 80320; 85025; 93005; 99285; G0480

== ENCOUNTER 2021-09-03 16:31 | Emergency (ER) | payer MEDICAID ==
[~2021-09-03] VITALS: Ht 182.9 cm; Wt 78.0 kg
[~2021-09-03 16:31] MED LIST changes: +NAPR-681 PO
[2021-09-03] MEDS ORDERED: IBUPROFEN 400MG TABLET PO ONE (19:30)
[2021-09-03] MEDS ORDERED: LIDOCAINE 5% PATCH TOP SCH (19:30)
[2021-09-03] MEDS ORDERED: METHOCARBAMOL 500MG TABLET PO ONE (19:30)
[2021-09-03] MEDS ORDERED: CHLORDIAZEPOXIDE 25MG CAPSULE PO ONE (19:30)
[2021-09-03] MEDS ORDERED: ACETAMINOPHEN 325MG TABLET PO ONE (19:30)
[2021-09-03] MEDS ORDERED: L25 MT (19:33)
[2021-09-03 20:53] VITALS: BP 147/85
== END 2021-09-03 20:54 | disposition home or self-care (01) ==
LOC: ER 16:31
DX: Z53.21 Procedure and treatment not carried out due to patient leaving prior to being seen by health care provider (principal)
CPT/HCPCS: 99284

== ENCOUNTER 2021-09-25 08:29 | Emergency (ER) | payer MEDICAID ==
[~2021-09-25] VITALS: Ht 185.4 cm; Wt 85.0 kg
[~2021-09-25 08:29] MED LIST changes: +L25 MT
[2021-09-25] MEDS ORDERED: ACETAMINOPHEN 325MG TABLET PO STA (08:34)
[2021-09-25 09:02] LABS: BASOPHILS % 1.1 % (0.0-2.0); EOSINOPHILS % 2.2 % (0.0-5.0); HEMATOCRIT. 36.3 % (42.0-52.0); HEMOGLOBIN. 12.1 g/dL (14.0-18.0); MEAN CORPUSCULAR HEMOGLOBIN 32.2 pg (28.0-32.0); MEAN CORPUSCULAR VOLUME 96.3 fL (80.0-94.0); MEAN PLATELET VOLUME 7.2 fl (7.4-10.4); MONOCYTES % 9.1 % (2.0-8.0); NEUTROPHILS % 44.6 % (40.0-76.0); PLATELET 326 x1000/uL (130-400); RED BLOOD CELL COUNT 3.76 mill/uL (4.7-6.1)
[2021-09-25 09:05] LABS: CHLORIDE 115 mEq/L (98-107)
[2021-09-25 09:34] LABS: ETHANOL BLOOD 428 mg/dL
[2021-09-25 09:43] VITALS: BP 110/78
== END 2021-09-25 11:55 | disposition home or self-care (01) ==
LOC: ER 08:44
DX: F10.229 Alcohol dependence with intoxication, unspecified (principal); K21.9 Gastro-esophageal reflux disease without esophagitis; E11.22 Type 2 diabetes mellitus with diabetic chronic kidney disease; I12.9 Hypertensive chronic kidney disease with stage 1 through stage 4 chronic kidney disease, or unspecified chronic kidney disease; N18.9 Chronic kidney disease, unspecified; F12.10 Cannabis abuse, uncomplicated; Y90.8 Blood alcohol level of 240 mg/100 ml or more; Z86.19 Personal history of other infectious and parasitic diseases; Z85.9 Personal history of malignant neoplasm, unspecified; Z86.73 Personal history of transient ischemic attack (TIA), and cerebral infarction without residual deficits
CPT/HCPCS: 36415; 80053; 80320; 85025; 99283; G0480

== ENCOUNTER 2021-10-05 22:57 | Emergency (ER) | payer MEDICAID ==
[~2021-10-05] VITALS: Ht 182.9 cm; Wt 77.6 kg
[2021-10-05 23:57] LABS: CHLORIDE 111 mEq/L (98-107)
[2021-10-06] MEDS: ACETAMINOPHEN 325MG TABLET PO NR ×2 (00:30→01:30)
[2021-10-06 01:54] VITALS: BP 135/82
== END 2021-10-06 02:30 | disposition home or self-care (01) ==
LOC: ER 22:57
DX: M54.50 Low back pain, unspecified (principal); I10 Essential (primary) hypertension; F12.10 Cannabis abuse, uncomplicated
CPT/HCPCS: 36415; 80048; 99283

== ENCOUNTER 2021-10-17 23:20 | Emergency (ER) | payer MEDICAID ==
[~2021-10-17] VITALS: Ht 172.7 cm; Wt 82.0 kg
[2021-10-17] MEDS ORDERED: MAGNESIUM/ALUMINUM HYDROXIDE/SIMETHICONE 30ML UDC PO STA (23:50)
[2021-10-17] MEDS ORDERED: VISCOUS LIDOCAINE 2% 15 ML UDC PO STA (23:50)
[2021-10-18] MEDS ORDERED: ACETAMINOPHEN 500MG TABLET PO ONE
[2021-10-18 00:16] LABS: BASOPHILS % 0.8 % (0.0-2.0); EOSINOPHILS % 2.4 % (0.0-5.0); HEMATOCRIT. 33.6 % (42.0-52.0); HEMOGLOBIN. 11.4 g/dL (14.0-18.0); LYMPHOCYTES % 52.5 % (20.0-50.0); MEAN CORPUSCULAR HEMOGLOBIN 31.9 pg (28.0-32.0); MEAN CORPUSCULAR VOLUME 94.3 fL (80.0-94.0); MEAN PLATELET VOLUME 7.1 fl (7.4-10.4); MONOCYTES % 8.9 % (2.0-8.0); NEUTROPHILS % 35.4 % (40.0-76.0); PLATELET 201 x1000/uL (130-400); RED BLOOD CELL COUNT 3.56 mill/uL (4.7-6.1); RED CELL DISTRIBUTION WIDTH 14.7 % (11.6-14.6)
[2021-10-18 00:29] LABS: CHLORIDE 109 mEq/L (98-107)
[2021-10-18 02:26] LABS: ETHANOL BLOOD 397 mg/dL
[2021-10-18 05:00] VITALS: BP 123/82
== END 2021-10-18 05:17 | disposition home or self-care (01) ==
LOC: ER 23:20
DX: F10.129 Alcohol abuse with intoxication, unspecified (principal); I10 Essential (primary) hypertension; Y90.8 Blood alcohol level of 240 mg/100 ml or more
CPT/HCPCS: 36415; 80053; 80320; 82962; 85025; 99285; G0480

== ENCOUNTER 2021-10-30 12:23 | Emergency (ER) | payer MEDICAID ==
[~2021-10-30] VITALS: Ht 182.9 cm; Wt 70.0 kg
[2021-10-30] MEDS ORDERED: SODIUM CHLORIDE 0.9% 500 ML IV ONE (13:00)
[2021-10-30 14:05] LABS: BASOPHILS % 0.7 % (0.0-2.0); EOSINOPHILS % 1.8 % (0.0-5.0); HEMATOCRIT. 33.2 % (42.0-52.0); HEMOGLOBIN. 11.4 g/dL (14.0-18.0); MEAN CORPUSCULAR HEMOGLOBIN 32.8 pg (28.0-32.0); MEAN CORPUSCULAR VOLUME 95.1 fL (80.0-94.0); MEAN PLATELET VOLUME 7.3 fl (7.4-10.4); MONOCYTES % 8.1 % (2.0-8.0); NEUTROPHILS % 58.4 % (40.0-76.0); PLATELET 243 x1000/uL (130-400); RED BLOOD CELL COUNT 3.49 mill/uL (4.7-6.1); RED CELL DISTRIBUTION WIDTH 14.4 % (11.6-14.6)
[2021-10-30 14:11] LABS: CHLORIDE 112 mEq/L (98-107)
[2021-10-30 14:22] VITALS: BP 107/69
[2021-10-30 14:41] LABS: ETHANOL BLOOD 431 mg/dL
== END 2021-10-30 15:19 | disposition home or self-care (01) ==
LOC: ER 12:23
DX: T51.0X1A Toxic effect of ethanol, accidental (unintentional), initial encounter (principal); G92.8 Other toxic encephalopathy; I11.9 Hypertensive heart disease without heart failure; E11.9 Type 2 diabetes mellitus without complications; Y90.8 Blood alcohol level of 240 mg/100 ml or more; J45.909 Unspecified asthma, uncomplicated; Z86.73 Personal history of transient ischemic attack (TIA), and cerebral infarction without residual deficits; Z86.11 Personal history of tuberculosis; Z86.19 Personal history of other infectious and parasitic diseases; Y92.488 Other paved roadways as the place of occurrence of the external cause
CPT/HCPCS: 36415; 80053; 80320; 83690; 84484; 85025; 96360; 99283; J7040; G0480

== ENCOUNTER 2021-11-30 21:32 | Inpatient (IN) | payer MEDICAID ==
[~2021-11-30] VITALS: Ht 185.4 cm; Wt 74.8 kg
[2021-11-30 23:39] LABS: BASOPHILS % 0.9 % (0.0-2.0); EOSINOPHILS % 1.2 % (0.0-5.0); HEMATOCRIT. 39.5 % (42.0-52.0); HEMOGLOBIN. 12.8 g/dL (14.0-18.0); LYMPHOCYTES % 45.2 % (20.0-50.0); MEAN CORPUSCULAR HEMOGLOBIN 31.2 pg (28.0-32.0); MEAN CORPUSCULAR VOLUME 95.8 fL (80.0-94.0); MEAN PLATELET VOLUME 7.4 fl (7.4-10.4); NEUTROPHILS % 45.7 % (40.0-76.0); PLATELET 258 x1000/uL (130-400); RED BLOOD CELL COUNT 4.12 mill/uL (4.7-6.1); RED CELL DISTRIBUTION WIDTH 14.3 % (11.6-14.6)
[2021-11-30 23:52] LABS: CHLORIDE 104 mEq/L (98-107)
[2021-12-01 00:08] LABS: ETHANOL BLOOD 398 mg/dL
[2021-12-01] MEDS ORDERED: ASPIRIN 81MG TABLET PO ONE (00:30)
[2021-12-01] MEDS ORDERED: CHLORDIAZEPOXIDE 25MG CAPSULE PO ONE (00:30)
[2021-12-01 02:06] LABS: *AMPHETAMINES SCREEN URINE NEGATIVE (NEGATIVE); *BARBITURATES SCREEN URINE NEGATIVE (NEGATIVE); *BENZODIAZEPINES SCREEN URINE NEGATIVE (NEGATIVE); *COCAINE SCREEN URINE PRESUMTIVE POSITIVE (NEGATIVE)
[2021-12-01 02:07] LABS: CANNABINOID URINE SCREEN NEGATIVE (NEGATIVE); METHADONE URINE SCREEN NEGATIVE (NEGATIVE); OPIATES URINE SCREEN NEGATIVE (NEGATIVE); PHENCYCLIDINE URINE SCREEN NEGATIVE (NEGATIVE)
[2021-12-01] MEDS ORDERED: SODIUM CHLORIDE 0.45% 1,000 ML IV SCH (10:15)
[2021-12-01] MEDS ORDERED: ONDANSETRON HCL 4MG/2ML INJ IV PRN (11:45)
[2021-12-01] MEDS ORDERED: MORPHINE SULFATE 2 MG/ML CPJ (NOT FOR IM USE) IV PRN (11:45)
[2021-12-01] MEDS ORDERED: AMLODIPINE 5MG TABLET PO SCH (11:45)
[2021-12-01 12:00] VITALS: BP 131/84
[2021-12-01 13:09] LABS: BASOPHILS % 1.2 % (0.0-2.0); EOSINOPHILS % 2.5 % (0.0-5.0); HEMATOCRIT. 38.7 % (42.0-52.0); HEMOGLOBIN. 12.8 g/dL (14.0-18.0); LYMPHOCYTES % 36.1 % (20.0-50.0); MEAN CORPUSCULAR HEMOGLOBIN 31.5 pg (28.0-32.0); MEAN CORPUSCULAR VOLUME 95.2 fL (80.0-94.0); MEAN PLATELET VOLUME 7.8 fl (7.4-10.4); MONOCYTES % 11.5 % (2.0-8.0); NEUTROPHILS % 48.7 % (40.0-76.0); PLATELET 235 x1000/uL (130-400); RED BLOOD CELL COUNT 4.07 mill/uL (4.7-6.1); RED CELL DISTRIBUTION WIDTH 14.2 % (11.6-14.6)
[2021-12-01 13:12] LABS: CHLORIDE 109 mEq/L (98-107)
[2021-12-01 13:19] LABS: LDL CHOLESTEROL 62 mg/dL (5-100)
[2021-12-01 13:20] LABS: HDL CHOLESTEROL 131 mg/dL (40-59)
[2021-12-01] MEDS: PANTOPRAZOLE 40MG DR TABLET PO SCH (13:49)
[2021-12-01] MEDS: FOLIC ACID 1MG TABLET PO SCH (13:49)
[2021-12-01] MEDS: THIAMINE HCL 100MG TABLET PO SCH (13:50)
[2021-12-01] MEDS: SODIUM CHLORIDE 0.45% 1,000 ML IV SCH ×2 (13:50→21:43)
[2021-12-01] MEDS: CHLORDIAZEPOXIDE 25MG CAPSULE PO SCH ×2 (14:26→21:43)
[2021-12-01 16:00] VITALS: BP 138/82
[2021-12-01] MEDS: HYDROCODONE/ACETAMINOPHEN 5/325MG TABLET PO PRN ×2 (16:09→21:44)
[2021-12-01] MEDS ORDERED: MAGNESIUM/ALUMINUM HYDROXIDE/SIMETHICONE 30ML UDC PO PRN (17:45)
[2021-12-01] MEDS ORDERED: NALOXONE HCL 0.4MG/ML VIAL IV PRN (18:15)
[2021-12-01 20:00] VITALS: BP 120/79
[2021-12-01 20:02] VITALS: BP 131/84
[2021-12-02] VITALS: BP 111/65
[2021-12-02] MEDS: HYDROCODONE/ACETAMINOPHEN 5/325MG TABLET PO PRN (03:44)
[2021-12-02 04:00] VITALS: BP 110/68
[2021-12-02] MEDS: CHLORDIAZEPOXIDE 25MG CAPSULE PO SCH ×3 (05:43→21:29)
[2021-12-02] MEDS: PANTOPRAZOLE 40MG DR TABLET PO SCH (05:43)
[2021-12-02 08:00] VITALS: BP 137/93
[2021-12-02] MEDS: THIAMINE HCL 100MG TABLET PO SCH (08:43)
[2021-12-02] MEDS: FOLIC ACID 1MG TABLET PO SCH (08:43)
[2021-12-02] MEDS: SODIUM CHLORIDE 0.45% 1,000 ML IV SCH ×2 (08:43→18:19)
[2021-12-02] MEDS: ASPIRIN 81MG TABLET PO SCH (08:51)
[2021-12-02 12:21] LABS: T4 FREE 1.07 ng/dL (0.76-1.46)
[2021-12-02 12:30] VITALS: BP 133/70
[2021-12-02] MEDS ORDERED: VANJ5 PO (13:29)
[2021-12-02 16:30] VITALS: BP 116/72
[2021-12-02 17:23] LABS: BASOPHILS % 0.6 % (0.0-2.0); EOSINOPHILS % 2.3 % (0.0-5.0); HEMATOCRIT. 37.1 % (42.0-52.0); HEMOGLOBIN. 12.2 g/dL (14.0-18.0); LYMPHOCYTES % 28.2 % (20.0-50.0); MEAN CORPUSCULAR HEMOGLOBIN 31.5 pg (28.0-32.0); MEAN CORPUSCULAR VOLUME 95.6 fL (80.0-94.0); MEAN PLATELET VOLUME 8.6 fl (7.4-10.4); MONOCYTES % 11.1 % (2.0-8.0); NEUTROPHILS % 57.8 % (40.0-76.0); PLATELET 205 x1000/uL (130-400); RED BLOOD CELL COUNT 3.88 mill/uL (4.7-6.1)
[2021-12-02 17:31] LABS: CHLORIDE 107 mEq/L (98-107)
[2021-12-02] MEDS: VANCOMYCIN 1000MG/20ML ORAL SOLN PO SCH (18:19)
[2021-12-02 20:00] VITALS: BP 119/82
[2021-12-03] VITALS: BP 117/74
[2021-12-03] MEDS: VANCOMYCIN 1000MG/20ML ORAL SOLN PO SCH ×3 (00:18→12:32)
[2021-12-03 04:00] VITALS: BP 119/81
[2021-12-03] MEDS: CHLORDIAZEPOXIDE 25MG CAPSULE PO SCH (05:24)
[2021-12-03] MEDS ORDERED: FAMOTIDINE 20MG TABLET PO SCH (07:10)
[2021-12-03 08:00] VITALS: BP 131/92
[2021-12-03] MEDS: SODIUM CHLORIDE 0.45% 1,000 ML IV SCH ×2 (08:28→12:35)
[2021-12-03] MEDS: ASPIRIN 81MG TABLET PO SCH (08:28)
[2021-12-03] MEDS: THIAMINE HCL 100MG TABLET PO SCH (08:28)
[2021-12-03] MEDS: FOLIC ACID 1MG TABLET PO SCH (08:28)
[2021-12-03 10:39] VITALS: BP 123/82
[2021-12-03 12:00] VITALS: BP 123/82
== END 2021-12-03 14:16 | disposition home or self-care (01) | DRG 816 ==
LOC: ER 21:32 → 8WST 12-01 02:25 → ENRESERV 12-01 10:17
PROVIDERS: ADMIT Family Medicine; ATTEND Family Medicine
DX: T40.5X1A Poisoning by cocaine, accidental (unintentional), initial encounter (principal); K76.0 Fatty (change of) liver, not elsewhere classified; D64.9 Anemia, unspecified; E11.9 Type 2 diabetes mellitus without complications; F10.129 Alcohol abuse with intoxication, unspecified; E86.0 Dehydration; F10.139 Alcohol abuse with withdrawal, unspecified; R07.9 Chest pain, unspecified; M94.0 Chondrocostal junction syndrome [Tietze]; I10 Essential (primary) hypertension; J45.909 Unspecified asthma, uncomplicated; K40.90 Unilateral inguinal hernia, without obstruction or gangrene, not specified as recurrent; K57.90 Diverticulosis of intestine, part unspecified, without perforation or abscess without bleeding; N28.89 Other specified disorders of kidney and ureter; Y90.9 Presence of alcohol in blood, level not specified; R77.8 Other specified abnormalities of plasma proteins; Z86.73 Personal history of transient ischemic attack (TIA), and cerebral infarction without residual deficits; Z87.891 Personal history of nicotine dependence; Z79.1 Long term (current) use of non-steroidal anti-inflammatories (NSAID); Z79.899 Other long term (current) drug therapy
CPT/HCPCS: 36415; 71045; 80053; 80061; 80305; 80320; 83036; 84439; 84443; 84484; 85025; 85379; 87015; 87045; 87427; 87449; 87493; 93005; 93306; 99291; J3370; G0480

== ENCOUNTER 2021-12-13 00:26 | Emergency (ER) | payer MEDICAID ==
[~2021-12-13] VITALS: Ht 188 cm; Wt 90.0 kg
[~2021-12-13 00:26] MED LIST changes: -L25 MT; -NAPR-681 PO; +VANJ5 PO
[2021-12-13] MEDS ORDERED: ASPIRIN 81MG TABLET PO ONE (01:30)
[2021-12-13] MEDS ORDERED: NITROGLYCERIN 0.4MG TABLET SL SL PRN (01:30)
[2021-12-13 02:11] LABS: BASOPHILS % 0.4 % (0.0-2.0); EOSINOPHILS % 2.8 % (0.0-5.0); HEMATOCRIT. 34.9 % (42.0-52.0); HEMOGLOBIN. 11.6 g/dL (14.0-18.0); LYMPHOCYTES % 41.4 % (20.0-50.0); MEAN CORPUSCULAR HEMOGLOBIN 31.5 pg (28.0-32.0); MEAN CORPUSCULAR VOLUME 94.9 fL (80.0-94.0); MEAN PLATELET VOLUME 7.5 fl (7.4-10.4); MONOCYTES % 6.6 % (2.0-8.0); NEUTROPHILS % 48.8 % (40.0-76.0); PLATELET 228 x1000/uL (130-400); RED BLOOD CELL COUNT 3.68 mill/uL (4.7-6.1); RED CELL DISTRIBUTION WIDTH 13.8 % (11.6-14.6)
[2021-12-13 02:29] LABS: CHLORIDE 115 mEq/L (98-107)
[2021-12-13 02:40] LABS: ETHANOL BLOOD 361 mg/dL
[2021-12-13 06:07] VITALS: BP 125/82
== END 2021-12-13 06:08 | disposition home or self-care (01) ==
LOC: ER 00:26
DX: F10.129 Alcohol abuse with intoxication, unspecified (principal); R07.89 Other chest pain; Z98.890 Other specified postprocedural states; Y90.8 Blood alcohol level of 240 mg/100 ml or more
CPT/HCPCS: 36415; 71045; 80053; 80320; 83880; 84484; 85025; 93005; 99285; G0480

== ENCOUNTER 2021-12-13 06:16 | Emergency (ER) | payer MEDICAID ==
[~2021-12-13] VITALS: Ht 188 cm; Wt 80.0 kg
[2021-12-13 07:17] VITALS: BP 103/66
[2021-12-13] MEDS ORDERED: IBUPROFEN 600MG TABLET PO ONE (07:45)
== END 2021-12-13 08:25 | disposition left against medical advice (07) ==
LOC: ER 06:16
DX: R07.89 Other chest pain (principal); Z53.21 Procedure and treatment not carried out due to patient leaving prior to being seen by health care provider
CPT/HCPCS: 99281

== ENCOUNTER 2021-12-25 02:48 | Emergency (ER) | payer MEDICAID ==
[~2021-12-25] VITALS: Ht 182.9 cm; Wt 83.0 kg
[2021-12-25 02:50] VITALS: BP 101/66
[2021-12-25 03:45] LABS: BASOPHILS % 0.7 % (0.0-2.0); EOSINOPHILS % 2.3 % (0.0-5.0); HEMOGLOBIN. 12.1 g/dL (14.0-18.0); LYMPHOCYTES % 40.1 % (20.0-50.0); MEAN CORPUSCULAR HEMOGLOBIN 31.3 pg (28.0-32.0); MEAN CORPUSCULAR VOLUME 95.5 fL (80.0-94.0); MEAN PLATELET VOLUME 7.9 fl (7.4-10.4); MONOCYTES % 6.6 % (2.0-8.0); NEUTROPHILS % 50.3 % (40.0-76.0); PLATELET 206 x1000/uL (130-400); RED BLOOD CELL COUNT 3.88 mill/uL (4.7-6.1); RED CELL DISTRIBUTION WIDTH 14.2 % (11.6-14.6)
[2021-12-25 03:50] LABS: CHLORIDE 104 mEq/L (98-107)
[2021-12-25 04:18] LABS: CLARITY URINE CLEAR (CLEAR); COLOR URINE YELLOW (YELLOW); KETONES URINE NEGATIVE (NEGATIVE); LEUKOCYTE ESTERASE URINE TRACE (NEGATIVE); NITRITE URINE NEGATIVE (NEGATIVE); OCCULT BLOOD URINE NEGATIVE (NEGATIVE); PROTEIN URINE NEGATIVE (NEGATIVE); SPECIFIC GRAVITY URINE 1.009 (1.005-1.030); UROBILINOGEN URINE 0.2 E.U./dL (0.2-1.0)
[2021-12-25 06:48] LABS: ETHANOL BLOOD 319 mg/dL
== END 2021-12-25 06:22 | disposition home or self-care (01) ==
LOC: ER 02:48
DX: R07.89 Other chest pain (principal); I10 Essential (primary) hypertension; E11.9 Type 2 diabetes mellitus without complications; J45.909 Unspecified asthma, uncomplicated; F10.21 Alcohol dependence, in remission; Z86.19 Personal history of other infectious and parasitic diseases
CPT/HCPCS: 36415; 71045; 80053; 80320; 81003; 83880; 84484; 85025; 93005; 99285; G0480

== ENCOUNTER 2021-12-28 09:09 | Emergency (ER) | payer MEDICAID ==
[~2021-12-28] VITALS: Ht 188 cm; Wt 82.0 kg
[2021-12-28] MEDS ORDERED: ASPIRIN 325MG TABLET PO ONE (11:00)
[2021-12-28] MEDS ORDERED: ACETAMINOPHEN 325MG TABLET PO ONE (11:00)
[2021-12-28 11:14] LABS: BASOPHILS % 0.7 % (0.0-2.0); EOSINOPHILS % 1.7 % (0.0-5.0); HEMOGLOBIN. 11.4 g/dL (14.0-18.0); LYMPHOCYTES % 44.2 % (20.0-50.0); MEAN CORPUSCULAR HEMOGLOBIN 31.8 pg (28.0-32.0); MEAN CORPUSCULAR VOLUME 94.5 fL (80.0-94.0); MEAN PLATELET VOLUME 7.3 fl (7.4-10.4); MONOCYTES % 11.3 % (2.0-8.0); NEUTROPHILS % 42.1 % (40.0-76.0); PLATELET 249 x1000/uL (130-400)
[2021-12-28 11:20] LABS: CHLORIDE 109 mEq/L (98-107)
[2021-12-28 11:45] LABS: ETHANOL BLOOD 496 mg/dL
[2021-12-28] MEDS ORDERED: SODIUM CHLORIDE 0.9% 1,000 ML IV ONE (13:30)
[2021-12-28 14:30] VITALS: BP 114/60
== END 2021-12-28 17:42 | disposition left against medical advice (07) ==
LOC: ER 09:41
DX: G89.29 Other chronic pain (principal); M54.50 Low back pain, unspecified; R07.89 Other chest pain; F10.129 Alcohol abuse with intoxication, unspecified; E11.9 Type 2 diabetes mellitus without complications; I10 Essential (primary) hypertension; J45.909 Unspecified asthma, uncomplicated; Y90.8 Blood alcohol level of 240 mg/100 ml or more; Z86.19 Personal history of other infectious and parasitic diseases
CPT/HCPCS: 36415; 71045; 74176; 80053; 80320; 83605; 83880; 84484; 85025; 93005; 96360; 99285; G0480

== ENCOUNTER 2022-01-01 11:22 | Emergency (ER) | payer MEDICAID ==
[~2022-01-01] VITALS: Ht 188 cm; Wt 82.0 kg
[2022-01-01] MEDS ORDERED: IBUPROFEN 600MG TABLET PO STA (11:45)
[2022-01-01] MEDS ORDERED: SODIUM CHLORIDE 0.9% 1,000 ML IV ONE (11:45)
[2022-01-01 12:06] LABS: BASOPHILS % 0.8 % (0.0-2.0); EOSINOPHILS % 0.3 % (0.0-5.0); HEMATOCRIT. 34.8 % (42.0-52.0); HEMOGLOBIN. 11.6 g/dL (14.0-18.0); LYMPHOCYTES % 19.8 % (20.0-50.0); MEAN CORPUSCULAR HEMOGLOBIN 31.3 pg (28.0-32.0); MEAN CORPUSCULAR VOLUME 93.6 fL (80.0-94.0); MEAN PLATELET VOLUME 6.9 fl (7.4-10.4); NEUTROPHILS % 76.1 % (40.0-76.0); PLATELET 236 x1000/uL (130-400); RED BLOOD CELL COUNT 3.72 mill/uL (4.7-6.1); RED CELL DISTRIBUTION WIDTH 14.4 % (11.6-14.6)
[2022-01-01 12:14] LABS: CHLORIDE 108 mEq/L (98-107)
[2022-01-01] MEDS ORDERED: SODIUM CHLORIDE 0.9% 1000ML BAG (SEPSIS BOLUS) IV NR (13:15)
[2022-01-01] MEDS ORDERED: IBUPROFEN 600MG TABLET PO NR (15:15)
[2022-01-01] MEDS ORDERED: ACETAMINOPHEN 325MG TABLET PO ONE (15:30)
[2022-01-01 15:44] LABS: CLARITY URINE CLEAR (CLEAR); COLOR URINE YELLOW (YELLOW); KETONES URINE 2+ (NEGATIVE); LEUKOCYTE ESTERASE URINE NEGATIVE (NEGATIVE); NITRITE URINE NEGATIVE (NEGATIVE); OCCULT BLOOD URINE 1+ (NEGATIVE); PH URINE 5.5 (4.5-8.0); PROTEIN URINE 2+ (NEGATIVE); SPECIFIC GRAVITY URINE 1.018 (1.005-1.030)
[2022-01-01 16:06] LABS: *AMPHETAMINES SCREEN URINE NEGATIVE (NEGATIVE); *BARBITURATES SCREEN URINE NEGATIVE (NEGATIVE); *BENZODIAZEPINES SCREEN URINE NEGATIVE (NEGATIVE); *COCAINE SCREEN URINE NEGATIVE (NEGATIVE); CANNABINOID URINE SCREEN NEGATIVE (NEGATIVE); METHADONE URINE SCREEN NEGATIVE (NEGATIVE); OPIATES URINE SCREEN NEGATIVE (NEGATIVE); PHENCYCLIDINE URINE SCREEN NEGATIVE (NEGATIVE)
[2022-01-01 21:00] VITALS: BP 124/70
== END 2022-01-01 21:05 | disposition home or self-care (01) ==
LOC: ER 11:22
DX: F10.229 Alcohol dependence with intoxication, unspecified (principal); R07.89 Other chest pain; D64.9 Anemia, unspecified; E11.9 Type 2 diabetes mellitus without complications; I10 Essential (primary) hypertension; Y90.8 Blood alcohol level of 240 mg/100 ml or more; Z86.19 Personal history of other infectious and parasitic diseases
CPT/HCPCS: 36415; 70450; 71045; 80053; 80305; 80320; 81003; 83605; 83690; 83880; 84145; 84484; 85025; 96360; 96361; 99285; J7030; Z7610; G0480

== ENCOUNTER 2022-01-02 20:17 | Emergency (ER) | payer MEDICAID ==
[~2022-01-02] VITALS: Ht 177.8 cm; Wt 82.0 kg
[2022-01-03 02:30] VITALS: BP 132/88
== END 2022-01-03 03:02 | disposition home or self-care (01) ==
LOC: ER 20:17
DX: G89.29 Other chronic pain (principal); M54.50 Low back pain, unspecified; J45.909 Unspecified asthma, uncomplicated; E11.9 Type 2 diabetes mellitus without complications; I10 Essential (primary) hypertension
CPT/HCPCS: 99283

== ENCOUNTER 2022-01-24 18:30 | Emergency (ER) | payer MEDICAID ==
[~2022-01-24] VITALS: Ht 188 cm; Wt 78.0 kg
[2022-01-24] MEDS ORDERED: FAMOTIDINE 20MG/2ML VIAL IV ONE (19:30)
[2022-01-24] MEDS ORDERED: SODIUM CHLORIDE 0.9% 1,000 ML IV ONE (19:30)
[2022-01-24] MEDS ORDERED: MORPHINE SULFATE 4 MG/ML CPJ (NOT FOR IM USE) IV ONE (19:30)
[2022-01-24] MEDS ORDERED: ONDANSETRON HCL 4MG/2ML INJ IV ONE (19:30)
[2022-01-24 20:10] LABS: BASOPHILS % 0.7 % (0.0-2.0); EOSINOPHILS % 1.1 % (0.0-5.0); HEMATOCRIT. 34.3 % (42.0-52.0); HEMOGLOBIN. 11.4 g/dL (14.0-18.0); LYMPHOCYTES % 26.2 % (20.0-50.0); MEAN CORPUSCULAR HEMOGLOBIN 31.2 pg (28.0-32.0); MEAN CORPUSCULAR VOLUME 93.8 fL (80.0-94.0); MONOCYTES % 7.9 % (2.0-8.0); NEUTROPHILS % 64.1 % (40.0-76.0); PLATELET 274 x1000/uL (130-400); RED BLOOD CELL COUNT 3.65 mill/uL (4.7-6.1); RED CELL DISTRIBUTION WIDTH 16.1 % (11.6-14.6)
[2022-01-24 20:18] LABS: PROTHROMBIN TIME 11.2 sec (9.6-11.0)
[2022-01-24 20:20] LABS: CHLORIDE 108 mEq/L (98-107)
[2022-01-24 20:32] LABS: ETHANOL BLOOD 295 mg/dL
[2022-01-24 21:05] LABS: CLARITY URINE CLEAR (CLEAR); COLOR URINE YELLOW (YELLOW); KETONES URINE NEGATIVE (NEGATIVE); LEUKOCYTE ESTERASE URINE NEGATIVE (NEGATIVE); NITRITE URINE NEGATIVE (NEGATIVE); OCCULT BLOOD URINE NEGATIVE (NEGATIVE); PROTEIN URINE NEGATIVE (NEGATIVE); SPECIFIC GRAVITY URINE 1.006 (1.005-1.030); UROBILINOGEN URINE 0.2 E.U./dL (0.2-1.0)
[2022-01-24 21:18] LABS: *AMPHETAMINES SCREEN URINE NEGATIVE (NEGATIVE); *BARBITURATES SCREEN URINE NEGATIVE (NEGATIVE); *BENZODIAZEPINES SCREEN URINE NEGATIVE (NEGATIVE); *COCAINE SCREEN URINE NEGATIVE (NEGATIVE); CANNABINOID URINE SCREEN NEGATIVE (NEGATIVE); METHADONE URINE SCREEN NEGATIVE (NEGATIVE); OPIATES URINE SCREEN NEGATIVE (NEGATIVE); PHENCYCLIDINE URINE SCREEN NEGATIVE (NEGATIVE)
[2022-01-24] MEDS ORDERED: FAMO40TA70 MT (21:32)
[2022-01-24 22:00] VITALS: BP 129/61
== END 2022-01-24 22:13 | disposition home or self-care (01) ==
LOC: ER 18:30
DX: F10.20 Alcohol dependence, uncomplicated (principal); J45.909 Unspecified asthma, uncomplicated; E11.9 Type 2 diabetes mellitus without complications; I10 Essential (primary) hypertension; Z87.891 Personal history of nicotine dependence; Z79.899 Other long term (current) drug therapy; Y90.8 Blood alcohol level of 240 mg/100 ml or more; Z20.822 Contact with and (suspected) exposure to COVID-19
CPT/HCPCS: 36415; 71045; 80053; 80305; 80320; 81003; 83605; 83690; 83880; 84484; 85025; 85610; 86850; 86900; 86901; 87426; 87804; 93005; 96361; 96374; 96375; 99285; J2270; J2405; J3490; J7030; G0480

== ENCOUNTER 2022-01-30 12:40 | Inpatient (IN) | payer MEDICAID ==
[~2022-01-30] VITALS: Ht 177.8 cm; Wt 79.0 kg
[~2022-01-30 12:40] MED LIST changes: +FAMO40TA70 MT
[2022-01-30] MEDS ORDERED: ONDANSETRON HCL 4MG/2ML INJ IV STA (12:59)
[2022-01-30] MEDS ORDERED: MORPHINE SULFATE 4 MG/ML CPJ (NOT FOR IM USE) IV STA (12:59)
[2022-01-30] MEDS ORDERED: SODIUM CHLORIDE 0.9% 1,000 ML IV ONE (13:00)
[2022-01-30 13:19] LABS: BASOPHILS % 0.8 % (0.0-2.0); HEMATOCRIT. 34.4 % (42.0-52.0); HEMOGLOBIN. 11.2 g/dL (14.0-18.0); LYMPHOCYTES % 47.9 % (20.0-50.0); MEAN CORPUSCULAR HEMOGLOBIN 30.2 pg (28.0-32.0); MEAN CORPUSCULAR VOLUME 92.4 fL (80.0-94.0); MEAN PLATELET VOLUME 7.6 fl (7.4-10.4); NEUTROPHILS % 36.3 % (40.0-76.0); PLATELET 174 x1000/uL (130-400); RED BLOOD CELL COUNT 3.72 mill/uL (4.7-6.1); RED CELL DISTRIBUTION WIDTH 16.1 % (11.6-14.6)
[2022-01-30 13:28] LABS: CHLORIDE 111 mEq/L (98-107)
[2022-01-30] MEDS: MORPHINE SULFATE 4 MG/ML CPJ (NOT FOR IM USE) IV NR ×2 (17:40→18:02)
[2022-01-30] MEDS ORDERED: ONDANSETRON HCL 4MG/2ML INJ IV NR (17:45)
[2022-01-30 17:59] LABS: CLARITY URINE CLEAR (CLEAR); COLOR URINE YELLOW (YELLOW); KETONES URINE NEGATIVE (NEGATIVE); LEUKOCYTE ESTERASE URINE NEGATIVE (NEGATIVE); NITRITE URINE NEGATIVE (NEGATIVE); OCCULT BLOOD URINE TRACE (NEGATIVE); PH URINE 5.5 (4.5-8.0); PROTEIN URINE NEGATIVE (NEGATIVE); SPECIFIC GRAVITY URINE 1.009 (1.005-1.030); UROBILINOGEN URINE 0.2 E.U./dL (0.2-1.0)
[2022-01-30] MEDS ORDERED: DOCUSATE SODIUM 100MG CAPSULE PO PRN (19:45)
[2022-01-30] MEDS ORDERED: CLONIDINE 0.1MG TABLET PO PRN (19:45)
[2022-01-30] MEDS ORDERED: HYDROCODONE/ACETAMINOPHEN 5/325MG TABLET PO PRN (19:45)
[2022-01-30] MEDS ORDERED: ONDANSETRON HCL 4MG/2ML INJ IV PRN (19:45)
[2022-01-30] MEDS ORDERED: ACETAMINOPHEN 325MG TABLET PO PRN ×2 (19:45)
[2022-01-30] MEDS ORDERED: IPRATROPIUM/ALBUTEROL 0.5-3(2.5)MG/3ML NEB HHN PRN (19:45)
[2022-01-30] MEDS ORDERED: LORAZEPAM 0.5MG TABLET PO PRN (19:45)
[2022-01-31] VITALS: BP 99/54
[2022-01-31 10:16] LABS: *AMPHETAMINES SCREEN URINE NEGATIVE (NEGATIVE); *BARBITURATES SCREEN URINE NEGATIVE (NEGATIVE); *BENZODIAZEPINES SCREEN URINE NEGATIVE (NEGATIVE); *COCAINE SCREEN URINE NEGATIVE (NEGATIVE); CANNABINOID URINE SCREEN NEGATIVE (NEGATIVE); METHADONE URINE SCREEN NEGATIVE (NEGATIVE); OPIATES URINE SCREEN NEGATIVE (NEGATIVE); PHENCYCLIDINE URINE SCREEN NEGATIVE (NEGATIVE)
== END 2022-01-31 07:30 | disposition left against medical advice (07) | DRG 468 ==
LOC: ER 12:40 → MICUSO 19:23 → EDBEDREQTM 19:52 → EDBEDREQ 19:52
PROVIDERS: ADMIT Internal Medicine; ATTEND Internal Medicine
DX: N28.89 Other specified disorders of kidney and ureter (principal); I13.10 Hypertensive heart and chronic kidney disease without heart failure, with stage 1 through stage 4 chronic kidney disease, or unspecified chronic kidney disease; B19.20 Unspecified viral hepatitis C without hepatic coma; N18.9 Chronic kidney disease, unspecified; Z53.29 Procedure and treatment not carried out because of patient's decision for other reasons; N32.89 Other specified disorders of bladder; F10.20 Alcohol dependence, uncomplicated; Y90.9 Presence of alcohol in blood, level not specified; K57.90 Diverticulosis of intestine, part unspecified, without perforation or abscess without bleeding; Z59.00 Homelessness unspecified; Z85.528 Personal history of other malignant neoplasm of kidney; Z86.73 Personal history of transient ischemic attack (TIA), and cerebral infarction without residual deficits; Z79.899 Other long term (current) drug therapy
CPT/HCPCS: 36415; 71045; 74176; 80053; 80305; 81003; 83605; 83880; 84484; 85025; 99285; J2270; J2405; J7030

== ENCOUNTER 2022-02-05 17:34 | Emergency (ER) | payer MEDICAID ==
[~2022-02-05] VITALS: Ht 188 cm; Wt 75.0 kg
[2022-02-05 17:50] VITALS: BP 138/88
[2022-02-05] MEDS ORDERED: MAGNESIUM/ALUMINUM HYDROXIDE/SIMETHICONE 30ML UDC PO STA (18:34)
[2022-02-05] MEDS ORDERED: ACETAMINOPHEN 325MG TABLET PO STA (18:34)
[2022-02-05] MEDS ORDERED: ACETAMINOPHEN 325MG TABLET PO NR (20:00)
== END 2022-02-05 19:58 | disposition home or self-care (01) ==
LOC: ER 17:34
DX: M54.50 Low back pain, unspecified (principal); G89.29 Other chronic pain; E11.9 Type 2 diabetes mellitus without complications; I10 Essential (primary) hypertension; J45.909 Unspecified asthma, uncomplicated; Z86.19 Personal history of other infectious and parasitic diseases; Z86.11 Personal history of tuberculosis
CPT/HCPCS: 99283

== ENCOUNTER 2022-02-18 23:18 | Emergency (ER) | payer MEDICAID ==
[~2022-02-18] VITALS: Ht 177.8 cm; Wt 88.0 kg
[2022-02-19] MEDS ORDERED: ACETAMINOPHEN 325MG TABLET PO ONE (00:45)
[2022-02-19] MEDS ORDERED: TOPUD MT (01:22)
[2022-02-19 01:40] VITALS: BP 138/73
[2022-02-19] MEDS ORDERED: ACET-2708 MT (21:24)
== END 2022-02-19 01:50 | disposition home or self-care (01) ==
LOC: ER 23:29
DX: M54.50 Low back pain, unspecified (principal); F10.229 Alcohol dependence with intoxication, unspecified; Y90.9 Presence of alcohol in blood, level not specified; I10 Essential (primary) hypertension; E11.9 Type 2 diabetes mellitus without complications; J45.909 Unspecified asthma, uncomplicated; Z86.19 Personal history of other infectious and parasitic diseases
CPT/HCPCS: 99283

== ENCOUNTER 2022-02-19 18:20 | Emergency (ER) | payer MEDICAID ==
[~2022-02-19] VITALS: Ht 172.7 cm; Wt 82.0 kg
[~2022-02-19 18:20] MED LIST changes: +TOPUD MT
[2022-02-19] MEDS ORDERED: ACETAMINOPHEN 325MG TABLET PO ONE (19:00)
[2022-02-19] MEDS ORDERED: IBUPROFEN 600MG TABLET PO ONE (19:00)
[2022-02-19] MEDS ORDERED: FAMOTIDINE 20MG TABLET PO ONE (19:15)
[2022-02-19] MEDS ORDERED: HYDROCODONE/ACETAMINOPHEN 5/325MG TABLET PO ONE (21:00)
[2022-02-19] MEDS ORDERED: ACET-2708 MT (21:24)
[2022-02-19 22:04] VITALS: BP 101/64
== END 2022-02-19 22:06 | disposition home or self-care (01) ==
LOC: ER 18:20
DX: G89.29 Other chronic pain (principal); M54.50 Low back pain, unspecified; E11.9 Type 2 diabetes mellitus without complications; I10 Essential (primary) hypertension; J45.909 Unspecified asthma, uncomplicated; F10.10 Alcohol abuse, uncomplicated; Y90.9 Presence of alcohol in blood, level not specified; Z86.19 Personal history of other infectious and parasitic diseases
CPT/HCPCS: 93005; 99284